=== PATIENT | male | born 1955 | race Caucasian/White ===

== ENCOUNTER 2019-08-27 14:42 | Emergency (ER) | payer OTHER, SELFPAY ==
[2019-08-27 14:48] VITALS: BP 133/93; PULSE 74; RESP 15; TEMP 36.9; O2SAT 96; BMI 32.1
--- NOTE | 2019-08-27 14:52 | ED_ITS ---
Entered by Debbie Aguirre, acting as scribe for HPI - Chest Pain General: Chief Complaint: Chest Pain Stated Complaint: cp Time Seen by Provider: 08/27/19 14:50 Review of Systems General: Reports: 10 or more systems reviewed and unremarkable except in HPI and below PFSH ED PFSH: Statuses (acute, chronic, etc) shown below reflect problem list status as previously entered and may not be historically accurate Social History Smoking and tobacco status: current every day smoker Physical Exam Narrative: EXAM NARRATIVE: No apparent distress. States she feels like she is about to have a seizure. Const: COMMON NORMALS: no apparent distress, oriented x3 and alert GENERAL APPEARANCE: cooperative HENMT: MOUTH: moist mucous membranes abnormal (dry mucus membranes) Neck/C-Spine: COMMON NORMALS: full ROM, no lymphadenopathy, no meningeal signs and no JVD Resp: COMMON NORMALS: normal respiratory effort, no retractions, no use of accessory muscles and clear to auscultation bilaterally AUSCULTATION: clear to auscultation bilaterally Cardio: COMMON NORMALS: no JVD, regular rate, regular rhythm, no gallops, no clicks and no murmurs RATE: regular rate RHYTHM: regular rhythm : COMMON NORMALS: Yes no CVA tenderness BLADDER/KIDNEY EXAM: Yes no CVA tenderness Back/Pelvis: COMMON NORMALS: no CVA tenderness and thoracic and lumbar spine normal to inspection Extremity: COMMON NORMALS: normal to inspection, full ROM and normal capillary refill Neuro: COMMON NORMALS: oriented x3 SENSORIUM/ORIENTATION: Yes alert MENINGEAL SIGNS: Yes no meningeal signs Course Vital Signs: Vital signs: Vital Signs Temperature 98.4 F 08/27/19 14:48 Pulse Rate 70 08/27/19 14:57 Respiratory Rate 17 08/27/19 14:57 Blood Pressure 133/93 08/27/19 14:48 Pulse Oximetry 98 08/27/19 14:57 MDM - Chest Pain Lab Data: Labs: Lab Results 08/27/19 Range/Units 15:20 WBC 8.5 (4.0-10.0) 10^3/ uL RBC 4.14 (4.1-5.3) 10^6/u L Hgb 12.8 (11.7-16.6) g/dL Hct 38.7 L (42.0-52.0) % MCV 93.5 (80-94) fL MCH 30.9 (28.0-34.0) pg MCHC 33.1 (30.0-36.0) g/dL RDW 11.9 L (12.1-15.1) % Plt Count 203 (130-400) 10^3/c mm MPV 9.5 (7.4-10.4) fL Neut % (Auto) 71.3 % Lymph % (Auto) 14.8 % [place] % (Auto) 11.3 % Eos % (Auto) 1.2 % Baso % (Auto) 0.8 % Neut # (Auto) 6.1 (1.8-7.7) 10^3/u L Lymph # (Auto) 1.3 (0.8-4.8) 10^3/u L [place] # (Auto) 1.0 H (0.2-0.9) 10^3/u L Eos # (Auto) 0.1 (0.0-0.8) 10^3/u L Baso # (Auto) 0.1 (0.0-0.1) 10^3/u L Nucleated RBC % (a uto) 0 % Nucleated RBCs # 0.0 /100WBC Discharge Plan Discharge Condition: Stable Referrals: Sigifredo Chase [Family Provider] - Coding Level of Care Code ED Manager Statistical for Chg Fwd Exam Problem Focused The documentation recorded by the Timothy noel Bridget Annette, accurately reflects the service I personally performed and the decisions made by , Loi Torres, DO Aug 27, 2019 14:42
[2019-08-27 14:57] VITALS: PULSE 70; RESP 17; O2SAT 98
--- NOTE | 2019-08-27 14:57 | XR_ITS ---
WS: [id number] CHEST XRAY TECHNIQUE: Portable chest. CLINICAL INFORMATION: dizziness / chest pain COMPARISON: December 06, 2018 FINDINGS: Heart: Normal cardiac silhouette. Lungs: Lungs are clear. No consolidation or pleural effusion. Bones: Normal visualized bony structures. XR/XR chest 1V portable [id number] IMPRESSION: No acute chest findings
[2019-08-27] MEDS: sodium chloride 0.9% 1,000 ML 999 ML IV (15:07)
[2019-08-27 15:28] LABS: Basophils # 0.1 10^3/uL (0.0-0.1); Basophils % 0.8 %; Eosinophils # 0.1 10^3/uL (0.0-0.8); Eosinophils % 1.2 %; Hematocrit 38.7 % (42.0-52.0); Hemoglobin 12.8 g/dL (11.7-16.6); Lymphocytes # 1.3 10^3/uL (0.8-4.8); Lymphocytes % 14.8 %; Mean Corpuscular HGB Conc 33.1 g/dL (30.0-36.0); Mean Corpuscular Hemoglobin 30.9 pg (28.0-34.0); Mean Corpuscular Volume 93.5 fL (80-94); Mean Platelet Volume 9.5 fL (7.4-10.4); Monocytes % 11.3 %; Neutrophils # 6.1 10^3/uL (1.8-7.7); Neutrophils % 71.3 %; Nucleated Red Blood Cells % 0 %; Platelet Count 203 10^3/cmm (130-400); Red Blood Count 4.14 10^6/uL (4.1-5.3); Red Cell Distribution Width 11.9 % (12.1-15.1); White Blood Count 8.5 10^3/uL (4.0-10.0)
[2019-08-27 15:44] LABS: D Dimer <= 0.27 ug/mIFEU (0-0.59)
[2019-08-27 15:47] LABS: Lactate (Lactic Acid level) 1.4 mmol/L (0.5-2.2)
--- NOTE | 2019-08-27 15:53 | ECG_ITS ---
Measurements Intervals [place] Rate: 75 P: 45 HI: 146 QRS: 1 QRSD: 112 T: 25 QT: 375 QTc: 420 SINUS RHYTHM MODERATE INTRAVENTRICULAR CONDUCTION DELAY [110+ ms QRS DURATION] VOLTAGE CRITERIA FOR LVH Compared to ECG 03/17/2017 06:14:18 Intraventricular conduction delay now present Left ventricular hypertrophy now present Sinus arrhythmia no longer present Electronically Signed On 08-27-2019 17:48:44 NEGATIVE ASSEMBLER [address] N[address]alia [address] M.D. [id number] f
[2019-08-27 15:56] LABS: Alanine Aminotransferase 19 U/L (0-41); Albumin Level 4.4 g/dL (3.5-5.2); Alkaline Phosphatase 140 IU/L (40-130); Anion Gap 15.1 (5-19); Aspartate Amino Transferase 19 U/L (0-40); Blood Urea Nitrogen 19 mg/dL (8-23); Calcium 9.5 mg/Dl (8.8-10.2); Carbon Dioxide 25 mmol/L (22-29); Chloride 102 mmol/L (98-107); Globulin 2.7 g/dL (1.3-4.6); Glomerular Filtration Rate 75.7 mL/min (90-130); Glucose 103 mg/dL (74-106); Lipase 14 U/L (13-60); NT Pro B Type Natriuretic Pept 53 pg/mL (0-125); Potassium 4.1 mmol/L (3.5-5.1); Sodium 138 mmol/L (136-145); Total Bilirubin 0.3 mg/dL (0.15-1.2); Total Protein 7.1 g/dL (6.6-8.7)
[2019-08-27 16:29] LABS: Troponin(5th) Baseline 7 ng/mL (0-15)
[2019-08-27 17:08] VITALS: BP 133/93; PULSE 66; RESP 17; O2SAT 94
[2019-08-27] MEDS: sodium chloride 0.9% 500 ML IV (17:16)
--- NOTE | 2019-08-27 17:53 | ECG_ITS ---
Measurements Intervals [place] Rate: 62 P: 62 SD: 146 QRS: 9 QRSD: 92 T: 3 QT: 387 QTc: 396 SINUS RHYTHM MINIMAL VOLTAGE CRITERIA FOR LVH, CONSIDER NORMAL VARIANT Compared to ECG 08/27/2019 14:50:20 Intraventricular conduction delay no longer present Electronically Signed On 08-28-2019 9:57:07 LICENSING SPECIALIST [address] N[address]alia [address] M.D. [id number]
[2019-08-27 19:05] VITALS: BP 134/85; PULSE 77; RESP 17; O2SAT 98
[2019-08-27 19:06] LABS: Troponin 5 2HR 7.11 ng/mL (0-15); Troponin 5 2HR Delta 0.11 ABS# (0-10)
[2019-08-27 19:30] VITALS: BP 145/87; PULSE 71; RESP 18; O2SAT 97
--- NOTE | 2019-08-27 19:42 | ED_ITS ---
HPI - Chest Pain General: Chief Complaint: Chest Pain Stated Complaint: cp Time Seen by Provider: 08/27/19 14:50 Source: patient History of Present Illness: HPI narrative: 63-year-old male who has had episodic chest pain for the last day. Patient states the pain is sharp in nature. He is currently pain-free. He denies any worsening improving factors. He states he does have arm pain in both arms but is concerned it could be art hritis as it is worse with movement. Denies shortness of breath. MD complaint: chest pain Onset (ago): day(s) Timing of current episode: episodic Associated symptoms: Deny abdominal pain, dyspnea, fever(s), nausea or vomiting Review of Systems Const: Denies: fever or chills Eyes: Denies: change in vision ENMT: Denies: throat pain or mouth pain Card: Reports: chest pain Resp: Denies: shortness of breath GI: Denies: abdominal pain, nausea, vomiting or diarrhea Musc: Denies: back pain or joint pain Skin/Breast: Denies: rash Neuro: Denies: headache or behavioral changes Psych: Denies: depression Endo: Denies: excessive urination Miguel/Lymph: Denies: easy bruising All/Imm: Denies: hives PFSH ED PFSH: Statuses (acute, chronic, etc) shown below reflect problem list status as previously entered and may not be historically accurate Social History Smoking and tobacco status: current every day smoker Physical Exam Const: COMMON NORMALS: no apparent distress and healthy appearing HENMT: COMMON NORMALS: normocephalic and external nose normal HEAD & SCALP: normocephalic NOSE: external nose normal and no nasal discharge (nasal dischage) Eye: COMMON NORMALS: PERRL PUPIL: Yes PERRL Neck/C-Spine: COMMON NORMALS: full ROM and no lymphadenopathy Chest: COMMONS NORMALS: inspection of chest normal Resp: COMMON NORMALS: normal respiratory effort and clear to auscultation bilaterally AUSCULTATION: clear to auscultation bilaterally Cardio: COMMON NORMALS: regular rate and regular rhythm RATE: regular rate RHYTHM: regular rhythm GI: COMMON NORMALS: soft to palpation PALPATION: Yes soft Extremity: COMMON NORMALS: normal to inspection, full ROM and normal capillary refill Psych: COMMON NORMALS: mental status grossly normal and cooperative Skin: COMMON NORMALS: no rashes or lesions noted GENERAL SKIN EXAM: no rashes or lesions noted Course Vital Signs: Vital signs: Vital Signs Temperature 98.4 F 08/27/19 14:48 Pulse Rate 71 08/27/19 19:30 Respiratory Rate 18 08/27/19 19:30 Blood Pressure 145/87 08/27/19 19:30 Pulse Oximetry 97 08/27/19 19:30 MDM - Chest Pain MDM Narrative: Medical decision making narrative: Patient presents here with chest pain that is atypical in nature is been going on for weeks. Initial and repeat troponin here are normal. I took patient over from Dr. Villarreal and patient is pain-free here. Patient is stable for discharge and is to follow-up with primary care doctor in 3 to 5 days and return if worsening. Lab Data: Labs: Lab Results 08/27/19 08/27/19 08/27/19 Range/Units 15:20 15:20 15:20 WBC 8.5 (4.0-10.0) 10^3/ uL RBC 4.14 (4.1-5.3) 10^6/u L Hgb 12.8 (11.7-16.6) g/dL Hct 38.7 L (42.0-52.0) % MCV 93.5 (80-94) fL MCH 30.9 (28.0-34.0) pg MCHC 33.1 (30.0-36.0) g/dL RDW 11.9 L (12.1-15.1) % Plt Count 203 (130-400) 10^3/c mm MPV 9.5 (7.4-10.4) fL Neut % (Auto) 71.3 % Lymph % (Auto) 14.8 % [place] % (Auto) 11.3 % Eos % (Auto) 1.2 % Baso % (Auto) 0.8 % Neut # (Auto) 6.1 (1.8-7.7) 10^3/u L Lymph # (Auto) 1.3 (0.8-4.8) 10^3/u L [place] # (Auto) 1.0 H (0.2-0.9) 10^3/u L Eos # (Auto) 0.1 (0.0-0.8) 10^3/u L Baso # (Auto) 0.1 (0.0-0.1) 10^3/u L Nucleated RBC % (a uto) 0 % Nucleated RBCs # 0.0 /100WBC D-Dimer <= 0.27 (0-0.59) ug/mIFE U Sodium 138 (136-145) mmol/L Potassium 4.1 (3.5-5.1) mmol/L Chloride 102 (98-107) mmol/L Carbon Dioxide 25 (22-29) mmol/L Anion Gap 15.1 (5-19) BUN 19 (8-23) mg/dL Creatinine 1.0 (0.7-1.2) mg/dL GFR Calculation 75.7 L (90-130) mL/min Glucose 103 (74-106) mg/dL Lactate (0.5-2.2) mmol/L Calcium 9.5 (8.8-10.2) mg/Dl Total Bilirubin 0.3 (0.15-1.2) mg/dL AST 19 (0-40) U/L ALT 19 (0-41) U/L Alkaline Phosphata se 140 H (40-130) IU/L Troponin T Baselin e (0-15) ng/mL Troponin T 120 Min [place] (0-15) ng/mL NT-Pro-B Natriuret Pep 53 (0-125) pg/mL Total Protein 7.1 (6.6-8.7) g/dL Albumin 4.4 (3.5-5.2) g/dL Globulin 2.7 (1.3-4.6) g/dL Lipase 14 (13-60) U/L 08/27/19 08/27/19 08/27/19 Range/Units 15:20 15:20 17:56 WBC (4.0-10.0) 10^3/ uL RBC (4.1-5.3) 10^6/u L Hgb (11.7-16.6) g/dL Hct (42.0-52.0) % MCV (80-94) fL MCH (28.0-34.0) pg MCHC (30.0-36.0) g/dL RDW (12.1-15.1) % Plt Count (130-400) 10^3/c mm MPV (7.4-10.4) fL Neut % (Auto) % Lymph % (Auto) % [place] % (Auto) % Eos % (Auto) % Baso % (Auto) % Neut # (Auto) (1.8-7.7) 10^3/u L Lymph # (Auto) (0.8-4.8) 10^3/u L [place] # (Auto) (0.2-0.9) 10^3/u L Eos # (Auto) (0.0-0.8) 10^3/u L Baso # (Auto) (0.0-0.1) 10^3/u L Nucleated RBC % (a uto) % Nucleated RBCs # /100WBC D-Dimer (0-0.59) ug/mIFE U Sodium (136-145) mmol/L Potassium (3.5-5.1) mmol/L Chloride (98-107) mmol/L Carbon Dioxide (22-29) mmol/L Anion Gap (5-19) BUN (8-23) mg/dL Creatinine (0.7-1.2) mg/dL GFR Calculation (90-130) mL/min Glucose (74-106) mg/dL Lactate 1.4 (0.5-2.2) mmol/L Calcium (8.8-10.2) mg/Dl Total Bilirubin (0.15-1.2) mg/dL AST (0-40) U/L ALT (0-41) U/L Alkaline Phosphata se (40-130) IU/L Troponin T Baselin e 7 (0-15) ng/mL Troponin T 120 Min [place] 7.11 (0-15) ng/mL NT-Pro-B Natriuret Pep (0-125) pg/mL Total Protein (6.6-8.7) g/dL Albumin (3.5-5.2) g/dL Globulin (1.3-4.6) g/dL Lipase (13-60) U/L Imaging Data^: CXR: Attestation: I personally reviewed and interpreted this imaging study as follows: My impression: no acute abnormality Discharge Plan Discharge Patient Disposition: Home, Self-Care Clinical Impression: Chest pain Qualifiers: Chest pain type: unspecified Qualified Code(s): R07.9 - Chest pain, unspecified Condition: Stable Discharge Orders: Discharge Order (Routine); Ordered 08/27/19 Ordered By: Baljit Borrero Referrals: Sigifredo Chase [Family Provider] - 4-7 days Discharge Diet: Advance as tolerated Discharge Activity: Resume usual activity Patient Instructions: Chest Pain (ED) Discharge Date/Time: 08/27/19 19:34 Coding Level of Care Code ED Boat Crew Deck Hand for Brodie Chang
== END 2019-08-27 19:34 | disposition home or self-care (01) ==
PROVIDERS: Family Medicine; Emergency Provider Emergency Medicine; Family Provider Internal Medicine
DX: R07.9 Chest pain, unspecified (principal); F17.210 Nicotine dependence, cigarettes, uncomplicated
CPT/HCPCS: 36415; 71045; 80053; 83605; 83690; 83880; 84484; 85025; 85378; 93005; 96360; 96361; 99282; J7030; J7040

== ENCOUNTER 2020-04-06 07:03 | Outpatient (CLI) | payer OTHER, SELFPAY ==
--- NOTE | 2020-04-06 07:16 | NMCV_ITS ---
NM bay perf SPECT r/s* [id number] Pierre Mccoy Age: 64 Gender: M : 1955 Exam Date: 04/06/2020 08:37 Ordering Phys: Kerrie Robles Technologist: GREGORY Pérez Exam Location: [facility] Indications: HISTORY OF CAD STRESS TEST Please see separate stress test report in [facility] for full findings IMAGE PROTOCOL Rest/Stress 1 Lexiscan Day Radiopharmaceutical Dose (mCi) Administration Site Administered by Rest: Tc-99m 11.0 IV GREGORY Pérez Sestamibi Stress:Tc-99m 32.9 IV GREGORY Cook Sestamibi Rest: 06-Apr-2020 60 Discovery 630 Stress: 06-Apr-2020 30 Discovery 630 0.4mg Lexiscan. Images obtained in supine and prone position. SPECT RESULTS Technical Quality: Excellent Raw Data Analysis: Normal Image Corrections: No attenuation or motion correction applied Summed Stress Score: 0 Summed Rest Score: 0 Summed Difference Score: 0 PERFUSION FINDINGS Small size perfusion abnormality of mild severity of mid to apical inferior wall with improved tracer uptake on prone stress images. This is suggestive of attenuation artifact. FUNCTIONAL RESULTS (calculated via Gated SPECT) Stress Image LV EF (%): 58 Stress EDV (mL):123 TID: 1.21 Stress ESV (mL):52 FUNCTIONAL FINDINGS: The left ventricle is normal in size. Transient Ischemia Dilatation of 1.2. There is normal left ventricular systolic function. The left ventricular ejection fraction is normal with a value of 58%. There is normal left ventricular wall thickening. IMPRESSIONS 1. Myocardial perfusion imaging is normal. Attenuation artifact noted on mid to apical inferior wall. 2. Overall left ventricular systolic function is normal without regional wall motion abnormalities. 3. The left ventricular ejection fraction is normal with a value of 58%. 4. Transient ischemic dilation index is mildly elevated at 1.2. This may represent subendocardial ischemia/hypertensive response. Clinical correlation is advised. 5. No prior similar studies to compare. Nathalia Way MD (Electronically Signed) Final Date: 07 April 2020 11:27 S
--- NOTE | 2020-04-06 07:16 | ECG_ITS ---
[facility] Test Date: 2020-04-06 Pat Name: Pierre Mccoy Department: Room: Gender: Male Staffing Director: : 1955 Requested By: Kerrie Robles Order Number: [id number] Torres MD: Jayda English M.D. Interpretive Statements NAME OF STUDY: LEXISCAN SESTAMIBI STRESS TEST INDICATION: H/O CAD NOTE: Please note that this is the electrocardiogram portion of the Lexiscan/Sestamibi stress test. The perfusion scan will be documented separately. DATA: Baseline heart rate was 53 beats per minute. Baseline blood pressure was 120/77 millimeters of mercury. Target heart rate was 157. Maximum heart rate achieved was 85. which was 54 % of the predicted target heart rate. Maximum blood pressure was 148/86 millimeters of mercury. The reason for ending the test was completion of the protocol. The patient did not experience any symptoms. ELECTROCARDIOGRAM: BASELINE: Sinus rhythm. Normal axis. Otherwise, no ST-T changes suggestive of ischemia noted. No arrhythmia noted. EXERCISE: After Lexiscan injection, no ST-T changes suggestive of ischemic noted. No arrhythmia noted. CONCLUSION: Please note due to baseline abnormality of the EKG specificity and sensitivity of the EKG portion of LexiScan MIBI stress test will be low 1. EKG not suggestive of ischemia 2. Lexiscan injection unremarkable. 3. Perfusion scan will be documented separately. Electronically Signed On 04-15-2020 19:09:59 CDT by Jayda English M.D. [id number]
[2020-04-06 07:36] VITALS: BMI 32.2
[2020-04-06] MEDS: regadenoson 0.4 Mg/5 ml Syringe IVP (09:34)
[2020-04-06 09:52] VITALS: BP 126/78; PULSE 73
== END 2020-04-06 07:04 | disposition home or self-care (01) ==
LOC: CDL 07:03
PROVIDERS: Visit Provider Nurse Practitioner Family
DX: I25.10 Atherosclerotic heart disease of native coronary artery without angina pectoris (principal); R94.39 Abnormal result of other cardiovascular function study
CPT/HCPCS: 78452; 93017; A9500; J2785

== ENCOUNTER 2020-10-08 08:33 | Outpatient (CLI) | payer OTHER, SELFPAY ==
--- NOTE | 2020-10-08 08:37 | MR_ITS ---
WS: [id number] MRI RIGHT SHOULDER NONCONTRAST AND CONTRAST TECHNIQUE: Sagittal T2, coronal T1, T2 and proton density imaging. Axial gradient PDE imaging. Post g adolinium imaging obtained. CLINICAL INFORMATION: mass and right shoulder pain COMPARISON: None. FINDINGS: Well-circumscribed lipoma deep to the palpable marker. Lipoma measures approximately 2.7 x 4.1 x 4.6 cm. No abnormal gadolinium enhancement. No surrounding edema. This appears well encapsulated. Moderate degenerative arthritis AC joint with mild edema. Subacromial space is preserved. Moderate de generative arthritis glenohumeral joint. Tiny amount of subacromial/subdeltoid fluid. Mild chronic th inning of the distal supraspinatus with calcific tendinitis at the insertion. Tiny intrasubstance tea r in the distal supraspinatus. Normal infraspinatus. Normal teres minor and subscapularis. Normal biceps tendon in the bicipital groove. Degenerative fraying of the glenoid labrum. Normal lisa ps labral anchor. MR/MR shoulder RT wo/w con [id number] IMPRESSION: 1. Well-circumscribed lipoma deep to the palpable marker measures 2.7 x 4.1 x 4.6 cm. No abnormal enhancement. 2. Moderate degenerative arthritis at the AC joint with a small amount of suba cromial/subdeltoid fluid. 3. Tiny intrasubstance tear with calcific tendinitis involving the distal supr aspinatus. Rotator cuff is otherwise normal in appearance. 4. Normal biceps tendon in the bicipital groove.
[2020-10-08] MEDS: gadobenate dimeglumine 20 mL vial IV (10:47)
== END 2020-10-08 08:34 | disposition home or self-care (01) ==
LOC: RADSHAW 08:35
PROVIDERS: PCP Family Medicine; Visit Provider Dermatology
DX: R22.31 Localized swelling, mass and lump, right upper limb (principal); M19.011 Primary osteoarthritis, right shoulder; M75.101 Unspecified rotator cuff tear or rupture of right shoulder, not specified as traumatic; M75.31 Calcific tendinitis of right shoulder
CPT/HCPCS: 73223; A9577

== ENCOUNTER → 2020-10-21 14:55 | Outpatient (BNVA) | payer OTHER, SELFPAY | PROVIDERS: PCP Family Medicine; Visit Provider Nurse Practitioner | DX: R29.90 Unspecified symptoms and signs involving the nervous system (principal); F17.210 Nicotine dependence, cigarettes, uncomplicated | CPT/HCPCS: 99204 ==

== ENCOUNTER → 2020-11-26 10:22 | Outpatient (BNVA) | payer OTHER, SELFPAY | PROVIDERS: PCP Family Medicine; Visit Provider Surgery | DX: D17.9 Benign lipomatous neoplasm, unspecified (principal); Z20.822 Contact with and (suspected) exposure to COVID-19 | CPT/HCPCS: 87635 ==

== ENCOUNTER 2020-11-30 07:41 | Day surgery (SDC) | payer OTHER, SELFPAY ==
[2020-11-27 15:55] VITALS: BMI 35.4
[2020-11-30] VITALS (11 sets, daily range): BP systolic 68–97; BP diastolic 50–64; PULSE 66–76; RESP 14–18; TEMP 36.2–36.3; O2SAT 91–97
--- NOTE | 2020-11-30 08:12 | ANES.PREANE2 ---
Pre-Anesthetic Assessment Pre-Anesthetic Assessment: Height/Weight: Height 1.73 m Weight 105.687 kg Preop Diagnosis: Right shoulder lipoma Proposed Procedure: Operation Date: 11/30/20 09:10 Proposed Procedures p 31003 excision of lipoma d17.9(Not Applicable) - Chester Whitman MD Was Beta Maria Luisa taken within 24 hours: Yes Was Clonidine taken within 24 hours: N/A Last intake: Intake Last Liquid Date 11/29/20 Last Liquid Time 19:30 Last Solid Date 11/29/20 Last Solid Time 19:30 Social: Social History: Tobacco and No alcohol Exam: Pre-Anes Outpt Exam: alert, oriented x 3 and regular rate & rhythm Airway: Submandibular: WNL Cervical ROM: WNL MP: 2 Additional comments: Missing several Pulmonary: Pulmonary: COPD CV/HEM: CV/HEM: CAD (stents) and HTN Metabolic: Metabolic: Morbid obesity Anesthetic Plan: ASA status: 3 Anesthesia: Choice Risk of > 500 ml blood loss (7ml/kg in children): No PFSH Anesthesia PFSH: Medical History ASHD (arteriosclerotic heart disease) History of AR (myocardial infarction) HTN (hypertension) Hyperlipidemia Mass of shoulder region Tremor Surgical History S/P coronary artery stent placement Social History Smoking and tobacco status: current every day smoker Data Anesthesia Cardiac Studies: No Data to Display
[2020-11-30] MEDS: sodium chloride 0.9% 1,000 ML 30 ML IV ×2 (08:20→11:10)
[2020-11-30] MEDS: acetaminophen 1,000 MG/100 ML PIGGYBACK 400 MG IV (08:20)
--- NOTE | 2020-11-30 09:56 | W.PM.OPSUD ---
Surgery/Procedure H&P Update DATE OF PROCEDURE: November 30, 2020 DATE H&P PERFORMED: 11/05/20 H&P UPDATE INFORMATION: I have reviewed H&P completed within last 30 days, I have examined patient prior to procedure and No changes to prior documentation PREOP DIAGNOSIS: Right shoulder lipoma PRIMARY INDICATION FOR PROCEDURE: Patient was seen and evaluated by orthopedic service and there will be no surgery at this point from orthopedic standpoint of view. We will plan to undergo excision of right shoulder lipoma and I did discuss with the patient after the length in the presence of his spouse that part of the discomfort that he has might be addressed by surgical removal of the lipoma but another etiology could be taking place in the presence of 1. Well-circumscribed lipoma deep to the palpable marker measures 2.7 x 4.1 x 4.6 cm. No abnormal enhancement. 2. Moderate degenerative arthritis at the AC joint with a small amount of subacromial/subdeltoid fluid. 3. Tiny intrasubstance tear with calcific tendinitis involving the distal supraspinatus. Rotator cuff is otherwise normal in appearance. 4. Normal biceps tendon in the bicipital groove. Patient understands and expectations are set and all questions have been answered PLANNED PROCEDURE: Operation Date: 11/30/20 09:10 Proposed Procedures p 40252 excision of lipoma d17.9(Not Applicable) - Chester Whitman MD
[2020-11-30] MEDS: lidocaine 2% INJ 20 mL INJECTION (10:35)
--- NOTE | 2020-11-30 10:38 | PM.OP ---
Operative Report Date of procedure: November 30, 2020 Pre-op Diagnosis: Right shoulder lipoma Post-op diagnosis: same Post-op Diagnosis: Subcutaneous right shoulder lipoma measures 5 x 4 cm x 2 Procedure Done: Excision of right shoulder lipoma Specimens removed/disposition: Right shoulder lipoma well encapsulated Surgeon: Chester Whitman Vending Machine Coin Collector: Surgical jelly Ramirez Anesthesia: General (LMA manager community Debbie) Estimated blood loss (mL): 5 Condition: stable Brief History: Right shoulder lipoma. Full H&P and informed consent per chart. Procedure: After identifying the patient holding area, the right shoulder was marked before the procedure by myself, patient was then taken to the operative suite, was placed in supine position, LMA was placed by the anesthesia, prophylactic IV antibiotics were given per protocol, right arm was tucked and a footboard was placed, prep and drape of the right shoulder region was done under the usual sterile technique. Time-out was done verifying the patient's name/date of /planned procedure and destination after the procedure, all were in agreement. After palpation of the right shoulder.I did a transverse incision on top of the madelyn corresponding to the skin crease increase with , dissection was carried after the skin incision all the way to the subcutaneous tissues, while benign encapsulated lipoma measures 4 x 5 x 2 cm was dissected from the underlying and surrounding subcutaneous tissues.The mass was passed to the circulating nurse for permanent pathology. Thorough irrigation of the cavity was done and hemostasis, followed by deep dermal closure by 2-0 Vicryl, then 4-0 Monocryl for skin closure Lidocaine 2% was injected at the site of the incision, followed by surgical glue and pressure dressing. Patient tolerated the procedure well, count of instruments, needles and sponges were completed at the end of the procedure. And then patient was taken to the recovery area in stable condition. I Was present for the whole entire procedure
--- NOTE | 2020-11-30 11:06 | SUR.PHASEI ---
PT REMAINS ASLEEP IN [place]SE [place] FOR SOFT BP , IV W/O RATE, BP IMPROVING AT 101/51 RT SHOULDER DRESSING D/I
--- NOTE | 2020-11-30 11:11 | SUR.PHASEI ---
PT AWAKES , ORAL AIRWAY OUT PT REMAINS VERY GROGGY, AND QUICKLY BACK TO SLEEP WITH SNORING RESP, SATS 97% ON 6LMASK
--- NOTE | 2020-11-30 11:22 | SUR.PHASEI ---
1120 PT HOB UP GRADUALLY, BP BACK DOWN, IV FLUID AT W/O RATE.
--- NOTE | 2020-11-30 11:29 | SUR.PHASEI ---
PT AWAKES EASILY, GOOD RESP NOTED SATS 90% PT PLACED ON 3NC SATS UP TO 94% VSS , PT QUICKLY BACK TO SLEEP,
--- NOTE | 2020-11-30 12:06 | SUR.PHASEI ---
1133 PT BP HOLDING WITH HOB 20 DEGREES , LEGS ELEVATED WILL CONTINUE TO MONITOR IN PHASE 2 REPORT AND HANDOFF AT BEDSIDE
--- NOTE | 2020-11-30 15:42 | ANE.PACU2 ---
Inpatient post-anesthesia follow up: Airway intact: Yes Vital signs: Temperature 97.2 F Pulse Rate 75 Respiratory Rate 18 Blood Pressure 97/64 Pulse Oximetry 92 Oxygen Delivery Me thod Room Air Oxygen Flow Rate 2 Fraction of Inspir ed Oxygen Hydration adequate: Yes Nausea and vomiting: No Pain level: 1 Mental status: Baseline
== END 2020-11-30 12:28 | disposition home or self-care (01) ==
PROVIDERS: PCP Family Medicine; Visit Provider Surgery
PROC: (CPT 11406; principal; 2020-11-30 09:00)
DX: D17.21 Benign lipomatous neoplasm of skin and subcutaneous tissue of right arm (principal); J44.9 Chronic obstructive pulmonary disease, unspecified; I25.10 Atherosclerotic heart disease of native coronary artery without angina pectoris; Z95.5 Presence of coronary angioplasty implant and graft; I10 Essential (primary) hypertension; E66.01 Morbid (severe) obesity due to excess calories; Z68.35 Body mass index [BMI] 35.0-35.9, adult; E78.5 Hyperlipidemia, unspecified; F17.210 Nicotine dependence, cigarettes, uncomplicated
CPT/HCPCS: 11406; 12032; 88304; 96365; J0690; J2250; J2405; J2704; J3010; J3490; J7030

== ENCOUNTER → 2021-01-07 08:24 | Outpatient (BNVA) | payer OTHER, SELFPAY | PROVIDERS: PCP Family Medicine; Visit Provider Internal Medicine Cardiovascular Disease | DX: I10 Essential (primary) hypertension (principal); I25.10 Atherosclerotic heart disease of native coronary artery without angina pectoris; E78.5 Hyperlipidemia, unspecified; Z20.822 Contact with and (suspected) exposure to COVID-19 | CPT/HCPCS: 80048; 85025; 85610; 87635 ==

== ENCOUNTER 2021-01-14 05:50 | Day surgery (SDC) | payer OTHER, SELFPAY ==
[2021-01-14] VITALS (56 sets, daily range): BP systolic 92–151; BP diastolic 58–123; PULSE 55–102; RESP 8–24; TEMP 36.3–36.8; O2SAT 91–100; BMI 33.7
--- NOTE | 2021-01-14 06:00 | XACV_ITS ---
Ht: 173 cm Wt: 101 kg BSA: 2.23 m2 Gender: Male : 1955 Any Known Allergies: No known allergies Exam Priority: Routine Procedure(s): Procedure Description: Diagnostic procedure Procedure Description: Left Heart Catheterization Diagnostic Cath Status: Elective Diagnostic Findings * Left Main has no disease. * Circumflex has no disease. * Right Coronary Artery has no disease. * Mid Left Anterior Descending: significant 75% stenosis, TIFFANI: 0 flow, FFR performed: ratio is 0.72. * 1st Diagonal: total occlusion, TIFFANI: 0 flow. * 1st Left Anterior Descending Septal Distribution Engineering Technologist Segment: severe 90% stenosis, TIFFANI: 3 flow. * Coronary angiography shows right dominance. Interventional Findings * Mid Left Anterior Descendin% stenosis treated with a AB MINI TREK 2.00X20 RX BALLOON, and MDT R KHOA 3.0X22 MARITA. 0% residual stenosis, TIFFANI: 3 flow. * 1st Diagonal: 100% stenosis treated with a AB MINI TREK 2.00X8 RX BALLOON. 0% residual stenosis, TIFFANI: 3 flow. Conclusions 1. There is significant coronary artery disease with one vessel disease. 2. Mid Left Anterior Descending was treated with a Balloon, and Drug Eluting Stent. 3. 1st Diagonal was treated with a Balloon. 4. FFR: After equalizing the distal and proximal pressure of FFR wire proximal to the lesion, mid LAD lesion was crossed with FFR wire. IV adenosine at rate of 140 mcg/min was started. Patient did not compliant of any symptoms, at then end of two minutes FFR was recorded as 0.72, which is not significant . Recommendations * 1-Return to inpatient for close monitoring and routine cath care 2-Risk factor modification for secondary prevention 3-Statin and aspirin 81 mg life--long, if tolerated 4-Patient was pre-loaded with 600 mg of Plavix, continue Plavix 75mg p.o. daily for at least one year. We will assess at the end of one year again to continue if further or not 5-Continue optimal medical management 6-Follow up with Dr. English in four weeks and your primary care in 10 days. Diagnostic RX Recommendation: PCI w/o planned CABG Procedural Details Procedure Consent Obtained. Admit Source: Out Patient. Pre-Procedure Time Out. Identified patient by full name and date of as verbalized by the patient/guarantor. Does the consent match the physician's order: Yes. Accurate & Complete Informed Consent: Yes. Inpatient/Outpatient History & Physical on Chart: Yes. If H&P is completed, is and addenduem needed: N/A; If yes, is the addendum complete: N/A. Visualize and Verify Site with Patient/Guarantor: N/A. Relevant Radiology Images available: N/A. Pre-op teaching completed and patient verbalized understanding. The risks, benefits, and alternatives of sedation and/or procedure were discussed by physician. The patient agrees to continue. Procedure started. Correct patient, site and procedure confirmed by cath team. PERRLA. 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 Lungs clear x 5 lobes. IV Site on Arrival: 20 gauge in the left anticubital. Pre Procedural Pulses: bilateral dorsalis pedis was 3+. Pre Procedural Pulses: bilateral posterior tibial was 3+. Pre Procedural Pulses: bilateral radial was 3+. Oxygen started at 21liters/min via nasal canula. bilateral groins was prepped with chloroprep then draped in the usual sterile fashion. right radial was prepped with chloroprep then draped in the usual sterile fashion. Physician notified. Baseline sample Acquired. HR: 59 BPM. Physician arrived. Physician scrubbed in. Immediate Pre-Procedure Time Out. Correct Patient: Yes; Correct Procedure: Yes; Correct Site: Yes; Correct Patient Position: Yes; Correct Supplies: Yes; Dried Flammable Prep: Yes; Blood Products Available: N/A;. Lidocaine 1% infiltrated to the right radial. Arterial access obtained. A 5 cuban TIG catheter in over wire. Multiple views taken of left coronary artery. Catheter redirected to the RCA. Catheter out. 6 cuban XB 3.5 guide catheter was inserted over the wire. FFR guidewire was advanced through the guide catheter to lesion in the mid LAD. Wire out. FFR guidewire was advanced through the guide catheter to lesion in the mid LAD. An FFR value of 0.72 was obtained for a lesion located at Mid LAD. Wire out. [place] guidewire was advanced through the guide catheter to lesion in the diaganol. [place] guidewire was advanced through the guide catheter to lesion in the mid LAD. Inflation number : 1 A AB MINI TREK 2.00X20 RX BALLOON was prepped and advanced across the Mid LAD , then inflated to 18 APRIL for 0:16 seconds. Balloon out. both wires out. [place] guidewire was advanced through the guide catheter to lesion in the mid LAD. [place] guidewire was advanced through the guide catheter to lesion in the diaganol. Inflation Number : 2 A MDT R KHOA 3.0X22 MARITA -Lot Number# [id number] exp date: 08-03-2022 was prepped and advanced across the Mid LAD. The stent was deployed at 16 APRIL for 0:27 seconds. Stent balloon out over wire. Results checked. cougar Wire 1 out. Runthrough guidewire was advanced through the guide catheter to lesion in the mid LAD. cougar Wire 2 out. Inflation number : 1 A AB MINI TREK 2.00X8 RX BALLOON was prepped and advanced across the 1st Diag , then inflated to 12 APRIL for 0:15 seconds. Inflation number: 2 The AB MINI TREK 2.00X8 RX BALLOON was reinflated across the 1st Diag, to 12 APRIL for 0:12 seconds. Inflation number: 3 The AB MINI TREK 2.00X8 RX BALLOON was reinflated across the 1st Diag, to 12 APRIL for 0:12 seconds. Inflation number: 4 The AB MINI TREK 2.00X8 RX BALLOON was reinflated across the 1st Diag, to 12 APRIL for 0:10 seconds. Balloon and wire out. Results checked. Guide catheter out. ACT drawn. Results 167 seconds. Therapeutic limits - pre-heparin administration 90-150 seconds and monitoring heparin during a vascular procedure >250 seconds. TR band placed. Hemostasis obtained. Post Procedure: Pulses reassessed and unchanged. PERRLA. 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 No VTE prophylaxis required. Medication's Wasted: Lidocaine 1% = 15 mL. Medication's Wasted: Other = adenosine 63.7 mg. Medication's Wasted: Nitro = 49.8 mg. Total IV fluids: 82 mL. Contrast type used: Omnipaque 300 mgI/mL, 500 mL bottle. Contrast Material : Omnipaque 301 ml. A TR Band was successful obtaining hemostatsis at the Right Radial artery insertion site. [facility] Clinical Fraility Score: 3: Managing Well. Circulation Crew Leader Indications: Worsening Angina. Chest Pain Symptom Assessment: Atypical Angina. Cardiovascular Instability: yes; unstable angina. PCI Indication: abnormal FFR of mid LAD. Post-op diagnosis: PCI to mid LAD. Complications: none. Medication's Wasted: Heparin = 3000 units. Procedure completed. Patient transferred by wheelchair to 1st floor. Vital chart was stopped. Access Site Site: Right Radial artery Sheath Size: 6 Fr Hemostasis Method: TR Band Hemostasis Success: Successful Procedure Medications Start: 8:49 AM Stop: 8:49 AM Medication: Versed Amount: 1 mg Route: I.V. Start: 8:49 AM Stop: 8:49 AM Medication: Fentanyl Amount: 50 mcg Route: I.V. Start: 8:55 AM Stop: 8:55 AM Medication: Nitrogylcerin Amount: 200 mcg Route: I.A. Start: 8:56 AM Stop: 8:56 AM Medication: Heparin Amount: 5000 units Route: I.V. Start: 9:24 AM Stop: 9:24 AM Medication: Heparin Amount: 5000 units Route: I.V. Start: 9:27 AM Stop: 9:27 AM Medication: Aggrastat 12.5 mg/250 mL Amount: 50 ml Route: I.V. bolus Start: 9:28 AM Stop: 9:28 AM Medication: Aggrastat 12.5 mg/250 mL Amount: 18 ml/hr Route: I.V. drip Start: 9:57 AM Stop: 9:57 AM Medication: Plavix Amount: 600 mg Route: P.O. Start: 9:58 AM Stop: 9:58 AM Medication: Heparin Amount: 3000 units Route: I.V. I, the attending physician, have reviewed and verified all procedure medications. Yes, all medications given per verbal order History/Risk Factors Hypertension: Yes Dyslipidemia: Yes Myocardial Infarction (PA): Yes Tobacco Use: Current/Recent(w/in 1 year) Prior Interventions PCI: Yes Report Signatures Finalized by Jayda English MD on 01/17/2021 09:09 AM
[2021-01-14] MEDS: diphenhydrAMINE 50 mg Capsule PO (06:36)
--- NOTE | 2021-01-14 08:43 | P.HP_ITS ---
Providers/Chief Complaint Primary Care Provider: Sally Conn MD Chief Complaint: Angina I20.9 History of Present Illness Pierre Mccoy is a 65 year old male coronary artery disease significant for drug-eluting stent to RCA in 2017 was complaining of worsening of fatigue shortness of breath and chest pain on mild exertion since he saw me last time. Pain has increased in frequency and duration. It is to the extent that he cannot walk far without hurting or being extremely short of breath. In the near past to be performed stress test which did not show significant ischemia medical management continued and optimized except beta-ida due to extreme fatigue. Since patient continues to have worsening of shortness of breath which has increased duration and frequency in order to rule out unstable angina we will proceed with coronary angiogram as stress test was already performed few months ago. Today patient is here for left heart cath. He has been explained all risk benefit and alternative for the procedure. He was explained the risk for stroke urgent emergent bypass, major minor bleed requiring transfusion. He would like to proceed with it. He understand the risk for contrast-induced nephropathy. Medications/Allergies Home Medications Medication Instructions Recorded Confirmed Last Taken Type aspirin 81 mg tablet,delayed 81 mg PO DAILY 11/19/19 01/14/21 01/13/21 09:00 History release lisinopril 2.5 mg tablet 2.5 mg PO DAILY 11/19/19 01/14/21 01/13/21 09:00 History rosuvastatin 20 mg tablet 20 mg PO DAILY 11/19/19 01/14/21 01/13/21 21:00 History omega-3 fatty acids 1,000 mg 1,000 mg PO BID cap 03/09/20 01/14/21 01/13/21 21:00 History capsule sertraline 100 mg tablet 100 mg PO DAILY 03/09/20 01/14/21 01/13/21 09:00 History nitroglycerin 0.4 mg sublingual 0.4 mg SUBLINGUAL Q5M PRN 30 Days 03/24/20 01/14/21 Unknown Rx tablet #25 tab atenolol 25 mg tablet 25 mg PO DAILY #90 tab 04/21/20 01/14/21 01/13/21 09:00 Rx isosorbide mononitrate 30 mg 30 mg PO BID #180 tab 09/08/20 01/14/21 01/13/21 21:00 Rx tablet,extended release 24 hr carbidopa 25 mg-levodopa 250 mg 1 tab PO BID tab 10/21/20 01/14/21 01/13/21 21:00 History tablet prazosin 2 mg capsule 2 mg PO DAILY cap 10/21/20 01/14/21 01/13/21 09:00 History hydrocodone-acetaminophen 1 tab PO Q6H PRN #28 tab 11/30/20 01/14/21 Unknown Rx clopidogrel [Plavix] 75 mg PO DAILY #90 tab 01/15/21 Unknown Rx Allergies Allergy/AdvReac Type Severity Reaction Status Date / Time No Known Allergies Allergy Verified 12/11/20 15:17 PFSH Acute PFSH: Medical History ASHD (arteriosclerotic heart disease) History of MN (myocardial infarction) HTN (hypertension) Hyperlipidemia Mass of shoulder region Tremor Surgical History S/P coronary artery stent placement Social History Smoking and tobacco status: current every day smoker Vitals/I&O/Wt Last Vital Signs Temp 98.2 F 01/14/21 06:16 Pulse 68 01/14/21 06:16 Resp 18 01/14/21 06:16 BP 130/58 01/14/21 06:16 Pulse Ox 97 01/14/21 06:16 Weight last 48 hrs Weight 222 lb Physical Exam Narrative: EXAM NARRATIVE: GENERAL: Patient is alert, awake and oriented x3. NECK: No jugular vein distension. HEENT: No cyanosis. No icterus. No pallor. HEART: Regular S1 and S2. No murmur, rub or gallop. LUNGS: Clear to auscultate bilaterally. ABDOMEN: Soft, nontender and nondistended. Positive bowel sounds. No guarding, rebound or tenderness. CENTRAL NERVOUS SYSTEM: Grossly nonfocal. EXTREMITIES: Lower extremities without edema bilaterally. Data : 01/15/21 03:57 01/15/21 03:57 A&P Assessment and plan (1) ASHD (arteriosclerotic heart disease): Worsening of shortness of breath with increased frequency and duration of chest pain severe fatigue in a patient with history of prior stents and recently negative stress test despite of optimization of medicine may represent unstable angina we will therefore proceed with left heart cath. Further plan will be devised as per progress of the patient. Status: Acute (2) HTN (hypertension): Reasonably well-controlled continue medicine Status: Acute Qualifiers: Hypertension type: essential hypertension Qualified Code(s): I10 - Essential (primary) hypertension (3) Hyperlipidemia: Continue statin Status: Acute Qualifiers: Hyperlipidemia type: unspecified Qualified Code(s): E78.5 - Hyperlipidemia, unspecified Attestations Medical Necessity Statement*: I am not expecting his stay to cross more than 1 midnight. He will be outpatient in the bed Coding Level of Care Code Established Pt Acute Source Water Protection Specialist for Chg Fwd Patient Type Established History Detailed Exam Detailed Medical Decision Making Moderate Complexity Diagnoses ASHD (arteriosclerotic heart disease) I25.10 HTN (hypertension) I10 Hypertension type: essential hypertension Hyperlipidemia E78.5 Hyperlipidemia type: unspecified
[2021-01-14] MEDS: morphine 4 mg/mL SDV 1 mL 2 MG IVP (10:57)
--- NOTE | 2021-01-14 11:06 | XACV_ITS ---
Exam Room: [facility] Ht: 173 cm Wt: 101 kg BSA: 2.23 m2 Gender: Male : 1955 Any Known Allergies: No known allergies Exam Priority: Routine Procedure(s): Procedure Description: Diagnostic procedure Procedure Description: Left Heart Catheterization Diagnostic Cath Status: Emergency Diagnostic Findings * Left Main has no disease. * Circumflex has no disease. * Right Coronary Artery has no disease. * Proximal Left Anterior Descending: severe 90% stenosis, TIFFANI: 2 flow. * Distal Left Anterior Descending: severe 90% stenosis, TIFFANI: 2 flow. * Coronary angiography shows right dominance. Interventional Findings * Proximal Left Anterior Descendin% stenosis treated with a MDT R KHOA 3.0X22 MARITA, and MDT NC EUPHORA RX 3.34L42WV BALLOON. 0% residual stenosis, TIFFANI: 3 flow. * Distal Left Anterior Descendin% stenosis treated with a AB TREK 2.25X12 RX BALLOON, MDT R KHOA 2.75X22 MARITA, and MDT NC EUPHORA RX 3.83Y43PO BALLOON. 0% residual stenosis, TIFFANI: 3 flow. Conclusions 1. 65-year-old male past medical history significant for nonobstructive coronary artery disease who for worsening of shortness of breath chest pain despite of optimization of medicine underwent stress test few months ago which was negative since he continues to do worse it is the reason we brought the patient for coronary angiogram. He was noted to have mid highly calcified tortuous lesion which was noted to be 70 to 80%. FFR was performed which was significant at 0.72. It is the reason patient was treated with balloon angioplasty followed by drug-eluting stent. Jailed diagonal was also treated with balloon angioplasty excellent angiographic result was achieved and patient was transferred back to the floor. Upon reaching the floor patient started having chest pain twelve-lead EKG showed ST elevation in anterolateral leads I was performing the second case which was on the table it was taken off of the table and patient was brought back to the Archives Specialist. He was noted to have severe spasm of the proximal and distal segment beyond and above the stent. Despite of giving IC nitro were not able to reduce the spasm. It was high suspicion that there might be dissection and most likely it was dissection due to FFR wire as the vessel is calcified and tortuous. Both dissections were treated with balloon angioplasty followed by 2 overlapping stents 1 below and one above the mid previously placed LAD stent. LAD stent which was previously placed without patent without stent thrombosis. Patient was on Aggrastat and loaded with Plavix during first intervention. Noncompliant balloon was used to postdilated all the stents. Excellent angiographic result with TIFFANI-[address] elevation resolved and patient felt much better.. 2. There is severe coronary artery disease with one vessel disease. 3. Proximal Left Anterior Descending was treated with a Drug Eluting Stent, and Balloon. 4. Distal Left Anterior Descending was treated with a Balloon, Drug Eluting Stent, and Balloon. Recommendations * Continue current medical management and risk factor modification. Interventional RX Recommendation: PCI w/o planned CABG Diagnostic RX Recommendation: PCI w/o planned CABG Clinical Evaluation EBL: 5mL-10mL Procedural Details Pre-Procedure Time Out. Identified patient by full name and date of as verbalized by the patient/guarantor. Does the consent match the physician's order: N/A Emergent. Accurate & Complete Informed Consent: N/A Emergent. Inpatient/Outpatient History & Physical on Chart: N/A Emergent. If H&P is completed, is and addenduem needed: N/A Emergent; If yes, is the addendum complete: N/A Emergent. Visualize and Verify Site with Patient/Guarantor: N/A. Relevant Radiology Images available: N/A Emergent. Pre-op teaching completed and patient verbalized understanding. The risks, benefits, and alternatives of sedation and/or procedure were discussed by physician. The patient agrees to continue. Procedure started. Correct patient, site and procedure confirmed by cath team. PERRLA. 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 Lungs clear x 5 lobes. IV Site on Arrival: 18 gauge in the left anticubital. IV Site on Arrival: 20 gauge in the left anticubital. Oxygen started at 2liters/min via nasal canula. bilateral groins was prepped with chloroprep then draped in the usual sterile fashion. Physician notified. Baseline sample Acquired. HR: 72 BPM. Physician arrived. Physician scrubbed in. Immediate Pre-Procedure Time Out. Correct Patient: Yes; Correct Procedure: Yes; Correct Site: Yes; Correct Patient Position: Yes; Correct Supplies: Yes; Dried Flammable Prep: yes; Blood Products Available: N/A;. Lidocaine 1% infiltrated to the right groin. Arterial access obtained with micropuncture set. AP pads applied. Baseline sample Acquired. HR: 70 BPM. 6 czech XB 3.5 guide catheter was inserted over the wire. Runthrough guidewire was advanced through the guide catheter to lesion in the dist LAD. anethsia called for back up and no answer. anesethia notified. Inflation number : 1 A AB TREK 2.25X12 RX BALLOON was prepped and advanced across the Dist LAD , then inflated to 14 APRIL for 0:13 seconds. Balloon out. Inflation Number : 2 A MDT R KHOA 2.75X22 MARITA -Lot Number# [id number] exp date: 06-15-2022 was prepped and advanced across the Dist LAD. The stent was deployed at 12 APRIL for 0:27 seconds. Stent balloon out over wire. Inflation number : 3 A MDT NC EUPHORA RX [id number] BALLOON was prepped and advanced across the Dist LAD , then inflated to 12 APRIL for 0:17 seconds. Inflation number: 4 The MDT NC EUPHORA RX [id number] BALLOON was reinflated across the Dist LAD, to 14 APRIL for 0:17 seconds. Inflation number: 5 The MDT NC EUPHORA RX [id number] BALLOON was reinflated across the Dist LAD, to 14 APRIL for 0:15 seconds. Balloon out. Results checked. using the 2.75mmx 22mm balloon inserted for measurement. Balloon out. Inflation Number : 1 A MDT R KHOA 3.0X22 MARITA -Lot Number# [id number] exp date: 07-31-2022 was prepped and advanced across the Prox LAD. The stent was deployed at 14 APRIL for 0:25 seconds. Stent balloon out over wire. Inflation number : 2 A MDT NC EUPHORA RX [id number] BALLOON was prepped and advanced across the Prox LAD , then inflated to 12 APRIL for 0:12 seconds. Inflation number: 3 The MDT NC EUPHORA RX [id number] BALLOON was reinflated across the Prox LAD, to 12 APRIL for 0:16 seconds. Balloon and wire out. Results checked. Guide catheter out. ACT drawn. Results 189 seconds. Therapeutic limits - pre-heparin administration 90-150 seconds and monitoring heparin during a vascular procedure >250 seconds. Sheath(s) sutured into position with 2-0 silk and sterile 4x4's and Op-site applied over the site. No oozing or signs and symptoms of hematoma noted. Arterial sheath flushed and connected to tranducer and pressure bag with heparinized saline. Post Procedure: Pulses reassessed and unchanged. PERRLA. 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 No VTE prophylaxis required. Medication's Wasted: Lidocaine 1% = 10 mL. Medication's Wasted: Nitro = 49.3 mg. Total IV fluids: 75 mL. Contrast type used: Omnipaque 300 mgI/mL, 500 mL bottle. Contrast Material : Omnipaque 243 ml. Post-op diagnosis: pt brought back due to acute vessel closure, secondary to edge disection. Medication's Wasted: Heparin = 2000 units. Complications: none. Estimated blood loss: 5mL-10mL. Procedure completed. A Suture was successful obtaining hemostatsis at the Right Femoral artery insertion site. Patient transferred by bed to 1st floor. Access Site Site: Right Femoral artery Sheath Size: 6 Fr Hemostasis Method: Suture Hemostasis Success: Successful Procedure Medications Start: 11:10 AM Stop: 11:10 AM Medication: Zofran (ondansetron) Amount: 20 mg Route: I.V. Start: 11:11 AM Stop: 11:11 AM Medication: Versed Amount: 1 mg Route: I.V. Start: 11:11 AM Stop: 11:11 AM Medication: Fentanyl Amount: 50 mcg Route: I.V. Start: 11:13 AM Stop: 11:13 AM Medication: Fentanyl Amount: 50 mcg Route: I.V. Start: 11:16 AM Stop: 11:16 AM Medication: Versed Amount: 1 mg Route: I.V. Start: 11:19 AM Stop: : AM Medication: Heparin Amount: 4000 units Route: I.V. Start: 11:20 AM Stop: 11:20 AM Medication: Nitrogylcerin Amount: 400 mcg Route: I.C. Start: 11:30 AM Stop: 11:30 AM Medication: Nitrogylcerin Amount: 400 mcg Route: I.C. Start: 11:51 AM Stop: 11:51 AM Medication: Heparin Amount: 3000 units Route: I.V. I, the attending physician, have reviewed and verified all procedure medications. Yes, all medications given per verbal order History/Risk Factors Hypertension: Yes Dyslipidemia: Yes Myocardial Infarction ([place]): Yes Tobacco Use: Current/Recent(w/in 1 year) Prior Interventions PCI: Yes Report Signatures Finalized by Jayda English MD on 01/17/2021 09:28 AM
--- NOTE | 2021-01-14 11:06 | PC.NURSE ---
patient called nurses station with reports of severe chest pain upon entering room patient is clutching chest and reports 10/10 chest pain ekg performed st elevation noted stemi alert called Dr henry and cath lab tech to bedside with confirmation of st elevation patient given morphine 2mg an 18 cj IV obtained in right arm zoll pads placed as precaution patient never lost consciousness patient take via bed to cath lab tech for intervention
[2021-01-14] MEDS: aspirin 81 mg EC Tablet PO (13:37)
--- NOTE | 2021-01-14 14:40 | PC.NURSE ---
aggrastate stopped at this time 80.2mls given
[2021-01-14 15:35] LABS: Partial Thromboplastin Time > 250.0 SECONDS (23.9-36.7)
[2021-01-14 17:32] LABS: Partial Thromboplastin Time 56.3 SECONDS (23.9-36.7)
[2021-01-14] MEDS: carbidopa-levodopa 25-250mg Tablet 1 EACH PO (17:46)
[2021-01-14] MEDS: omega-3 fatty acids 1,000 mg Capsule 1000 MG PO (17:47)
--- NOTE | 2021-01-14 22:41 | PC.NURSE ---
Instruction given regarding sheath pull. Patient verablized complete understanding. Initiated sheath removal at 2014 per protocol. Hemostasis achieved immediately. Maintained pressure for 20min. No s/s of bleeding or hematoma observed. VS remained WNL. Patient denies pain to site. Applied folded 4x4 and bio-occlusive dressing to site. Removed TR band ~2109. No bleeding or hematoma to right radial site. Covered site with 2x2 and bio-occlusive. Patient denies pain to this site as well. Provided instructions regarding site care and restrictions. Patient verbalized complete understanding to all instructions.
[2021-01-15 02:57] VITALS: BP 124/75; PULSE 70; RESP 15; TEMP 36.6; O2SAT 95
--- NOTE | 2021-01-15 03:14 | PC.NURSE ---
Patient up to bathroom. Dressing to right groin and right wrist both remain c,d,i. No s/s of bleeding or hematoma formation observed. Patient denies pain to both sites. Reinforced site care instructions. Patient verbalized complete understanding. No distress observed.
[2021-01-15 05:35] LABS: Basophils # 0.1 10^3/uL (0.0-0.1); Eosinophils # 0.1 10^3/uL (0.0-0.8); Eosinophils % 1.6 %; Hematocrit 40.5 % (42.0-52.0); Hemoglobin 13.4 g/dL (11.7-16.6); Lymphocytes # 1.3 10^3/uL (0.8-4.8); Lymphocytes % 15.3 %; Mean Corpuscular HGB Conc 33.1 g/dL (30.0-36.0); Mean Corpuscular Hemoglobin 31.5 pg (28.0-34.0); Mean Corpuscular Volume 95.1 fL (80-94); Mean Platelet Volume 10.4 fL (7.4-10.4); Monocytes % 11.3 %; Neutrophils # 6.17 10^3/uL (1.8-7.7); Neutrophils % 70.7 %; Nucleated Red Blood Cells % 0 %; Platelet Count 217 10^3/cmm (130-400); Red Blood Count 4.26 10^6/uL (4.1-5.3); Red Cell Distribution Width 12.7 % (12.1-15.1); White Blood Count 8.7 10^3/uL (4.0-10.0)
[2021-01-15 05:47] LABS: Anion Gap 12.9 (5-19); Blood Urea Nitrogen 9 mg/dL (8-23); Calcium 8.4 mg/dL (8.5-10.5); Carbon Dioxide 26 mmol/L (22-29); Chloride 104 mmol/L (98-107); Glucose 119 mg/dL (65-115); Osmolality Calculated 288 mOsm/kg (285-295); Potassium 3.9 mmol/L (3.5-5.1); Sodium 139 mmol/L (136-145)
[2021-01-15 06:27] VITALS: PULSE 79
[2021-01-15 07:48] VITALS: BP 126/69; PULSE 83; RESP 18; TEMP 36.8; O2SAT 96
[2021-01-15] MEDS: aspirin 81 mg EC Tablet PO (08:30)
[2021-01-15] MEDS: clopidogrel 75 mg Tablet PO (08:30)
[2021-01-15] MEDS: lisinopril 2.5 mg Tablet PO (08:30)
[2021-01-15] MEDS: sertraline 100 mg Tablet PO (08:30)
[2021-01-15] MEDS: atorvastatin 40 mg Tablet 80 MG PO (08:30)
[2021-01-15] MEDS: prazosin 1 mg Capsule 2 MG PO (08:31)
[2021-01-15] MEDS: atenolol 50 mg Tablet 25 MG PO (08:31)
[2021-01-15] MEDS: carbidopa-levodopa 25-250mg Tablet 1 EACH PO (08:31)
[2021-01-15] MEDS: omega-3 fatty acids 1,000 mg Capsule 1000 MG PO (08:39)
[2021-01-15 11:02] VITALS: BP 104/67; PULSE 85; RESP 19; TEMP 37; O2SAT 97
--- NOTE | 2021-01-15 12:16 | USCV_ITS ---
Pierre Mccoy Age: 65 Gender: M : 1955 Exam Date: 01/15/2021 13:32 Ordering Phys: Jayda English MD ([email or web address]) Technologist: Rossi Sahu Exam Location: [facility] [place] Indication: STEMI BP: 104 / 67 HR: 66 Rhythm: Sinus Technical Quality: Adequate MEASUREMENTS (Male / Female) Normal Values 2D ECHO LV Diastolic Diameter PLAX 4.7 cm 4.2 - 5.9 / 3.9 - 5.3 cm LV Systolic Diameter PLAX 3.1 cm LV Chamber Size 4.4 cm IVS Diastolic Thickness 1.1 cm 0.6 - 1.0 / 0.6 - 0.9 cm IVS Systolic Thickness 2.3 cm LVPW Diastolic Thickness 1.7 cm 0.6 - 1.0 / 0.6 - 0.9 cm LVPW Systolic Thickness 1.9 cm RV Chamber Size 3.5 cm LVOT Diameter 2.0 cm LV Ejection Fraction 2D Teich 62.9 % LV Ejection Fraction MOD 2C 69.7 % LV Ejection Fraction 2C AL 69.9 % LA Diameter 3.7 cm LA Width 3.0 cm LA Height 4.9 cm RA Width 3.2 cm RA Height 4.9 cm Aorta at Sinotubular Diameter 3.2 cm M-MODE LV Diastolic Diameter MM 4.7 cm 4.2 - 5.9 / 3.9 - 5.3 cm LV Systolic Diameter MM 2.7 cm LV Ejection Fraction MM Teich 74.3 % IVS Diastolic Thickness MM 1.5 cm 0.6 - 1.0 / 0.6 - 0.9 cm IVS Systolic Thickness MM 1.7 cm LVPW Diastolic Thickness MM 1.1 cm 0.6 - 1.0 / 0.6 - 0.9 cm LVPW Systolic Thickness MM 1.7 cm Aortic Annulus Diameter 4.1 cm LA Ao Ratio MM 0.9 MV E Point Septal Separation 0.4 cm DOPPLER AV Peak Velocity 135.0 cm/s LVOT Peak Velocity 96.0 cm/s AV Area Cont Eq vti 2.6 cm squared AV Area Cont Eq pk 2.3 cm squared MV Area PHT 4.1 cm squared Mitral E to A Ratio 1.2 MV E' Velocity 51.5 cm/s Mitral E to MV E' Ratio 9.2 Mitral E to LV E' Lateral Ratio 10.8 Mitral E to LV E' Septal Ratio 8.0 TR Peak Velocity 211.3 cm/s TR Peak Gradient 17.9 mmHg TR Mean Velocity 157.2 cm/s TR Mean Gradient 11.2 mmHg TR Velocity Time Integral 65.2 cm TV Peak E Velocity 67.0 cm/s Right Atrial Pressure 3.0 mmHg Pulmonary Artery Systolic Pressu 20.9 mmHg PV Peak Velocity 69.0 cm/s RV Acceleration Time 0.2 s RV Ejection Time 0.3 s RV AcT/ET 0.4 FINDINGS Left Ventricle Normal left ventricular cavity size. Normal left ventricular systolic function. No regional wall motion abnormalities. Left ventricular ejection fraction is estimated at 60 %. Grade I/IV diastolic dysfunction (abnormal relaxation filling pattern), normal to mildly elevated filling pressures. Right Ventricle The right ventricle is normal in size and function. Right Atrium The right atrium is normal in size. Left Atrium The left atrium is normal in size. Mitral Valve Mildly thickened mitral valve. No mitral valve stenosis. Mild mitral valve regurgitation. Aortic Valve Moderate aortic valve calcification. No aortic valve stenosis. Trace aortic valve regurgitation. Tricuspid Valve Mild tricuspid valve regurgitation. Pulmonic Valve Structurally normal pulmonic valve without significant stenosis. There is no pulmonic regurgitation. Pericardium Normal pericardium without effusion. Aorta Normal ascending aorta dimension. CONCLUSIONS 1-Normal left ventricular cavity size. Normal left ventricular systolic function. No regional wall motion abnormalities. Left ventricular ejection fraction is estimated at 60 %. Grade I/IV diastolic dysfunction (abnormal relaxation filling pattern), normal to mildly elevated filling pressures. 2-Mildly thickened mitral valve. No mitral valve stenosis. Mild mitral valve regurgitation. 3-Moderate aortic valve calcification. No aortic valve stenosis. Trace aortic valve regurgitation. 4-There is no pericardial effusion. 5-Pulmonary artery systolic pressure is within normal limits. 6-Right atrial pressure is around 5 mm of mercury. 7-No significant change since the prior echocardiogram study of 03/17/2017. Jayda English MD (Electronically Signed) Final Date: 15 January 2021 19:20 S
--- NOTE | 2021-01-15 13:03 | USCV_ITS ---
Pierre Mccoy Age: 65 Gender: M : 1955 Exam Date: 01/15/2021 13:16 Ordering Phys: Jayda English MD ([email or web address]) Technologist: Rossi Sahu Exam Location: [facility] [place] Indication: POST CATH RT GROIN FOR PSEUDO ANEURYSM Findings No Pseudo Aneurysm seen Patent right common femoral artery and vein in the right groin. Normal Doppler waveforms in these vessels. Patent dorsalis pedis and posterior tibial artery on the right side with normal Doppler waveforms Conclusions Patent right common femoral artery and vein at the right groin with no evidence pseudoaneurysm/AV fistula. Patent dorsalis pedis and posterior tibial arteries Dr Da Blake MD FAC (Electronically Signed) Final Date: 18 January 2021 09:35 S
--- NOTE | 2021-01-15 14:14 | PM.DCS ---
Discharge Providers Date of Discharge: January 15, 2021 Attending Provider at Discharge: Jayda English MD Primary Care Provider: Sally Conn MD Diagnoses at Discharge Discharge Diagnosis (1) ASHD (arteriosclerotic heart disease): Status: Acute (2) HTN (hypertension): Status: Acute Qualifiers: Hypertension type: essential hypertension Qualified Code(s): I10 - Essential (primary) hypertension (3) Hyperlipidemia: Status: Acute Qualifiers: Hyperlipidemia type: unspecified Qualified Code(s): E78.5 - Hyperlipidemia, unspecified Reason for Visit Reason for Visit: Angina I20.9 Hospital Course Hospital Course 65-year-old male past medical history significant for history of coronary artery disease hypertension hyperlipidemia parkinsonism for worsening of shortness of breath chest pressure and extreme fatigue suggestive of unstable angina underwent left heart cath he was noted to have 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 I decided to proceed with FFR which turned out to be significantly positive in the range of 0.77. We proceeded with single drug-eluting stent in the mid LAD. Excellent angiographic result with TIFFANI-3 flow was noted. Patient was transferred to the CSU in stable condition. Nearly after 1 hour I was called by the CSU nurse as patient started having excruciating pain despite of given Plavix and Aggrastat. Twelve-lead EKG was immediately performed which was suggestive of ST elevation in the anterior wall. Patient was immediately taken back to the Evp Chief Exploration Officer right groin approach was adopted. Angiogram revealed dissection proximal and distal to the mid LAD stent while stent was patent without any thrombosis. It was thought that perhaps this dissection was secondary to FFR wire during navigation and there is highly torturous and calcified artery. These dissection were immediately sealed with 2 drug-eluting stent which were overlapped with the previously placed mid LAD stent. All the stents were then postdilated at high inflation with noncompliant balloon. Excellent angiographic result was achieved. Overnight patient denied any event. His chest pain was immediately resolved post procedure. Right groin had moderate hematoma. Vascular ultrasound ruled out pseudoaneurysm. Patient is walking around without any difficulty. He is being discharged home with instruction to watch for right groin hematoma if it become painful or noticed more swelling he can always call us back and come to the ER if needed. Patient has been advised to continue Plavix for at least couple of years. Patient has been advised to continue rest of the medication. Physical Exam Narrative: EXAM NARRATIVE: GENERAL: Patient is alert, awake and oriented x3. NECK: No jugular vein distension. HEENT: No cyanosis. No icterus. No pallor. HEART: Regular S1 and S2. No murmur, rub or gallop. LUNGS: Clear to auscultate bilaterally. ABDOMEN: Soft, nontender and nondistended. Positive bowel sounds. No guarding, rebound or tenderness. CENTRAL NERVOUS SYSTEM: Grossly nonfocal. EXTREMITIES: Lower extremities without edema bilaterally. Right groin hematoma with mild bruising Discharge Data Data Completed and Pending: Pending at discharge Category Date Time Status ELEVATOR CONDUCTOR request for service Routin e Exams 01/14/21 06:00 Taken ELEVATOR CONDUCTOR request for service Routin e Exams 01/14/21 11:06 Taken CV echo complete* [id number] Routine Ultrasound 01/15/21 12:16 Taken US arterial duple x groin RT [CV art erial dup groin RT Ultrasound 01/15/21 13:03 Taken [id number]] Urgent Labs from last 24 hours 01/15/21 01/15/21 01/14/21 03:57 03:57 17:13 WBC 8.7 RBC 4.26 Hgb 13.4 Hct 40.5 L MCV 95.1 H MCH 31.5 MCHC 33.1 RDW 12.7 Plt Count 217 MPV 10.4 Neut % (Auto) 70.7 Lymph % (Auto) 15.3 [place] % (Auto) 11.3 Eos % (Auto) 1.6 Baso % (Auto) 1.0 Neut # (Auto) 6.17 Lymph # (Auto) 1.3 [place] # (Auto) 1.0 H Eos # (Auto) 0.1 Baso # (Auto) 0.1 Nucleated RBC % (a uto) 0 Nucleated RBCs # 0.0 APTT 56.3 H D Sodium 139 Potassium 3.9 Chloride 104 Carbon Dioxide 26 Anion Gap 12.9 BUN 9 Creatinine 0.9 GFR Calculation 85.0 L Glucose 119 H Calculated Osmolal ity 288 Calcium 8.4 L 01/14/21 14:54 WBC RBC Hgb Hct MCV MCH MCHC RDW Plt Count MPV Neut % (Auto) Lymph % (Auto) [place] % (Auto) Eos % (Auto) Baso % (Auto) Neut # (Auto) Lymph # (Auto) [place] # (Auto) Eos # (Auto) Baso # (Auto) Nucleated RBC % (a uto) Nucleated RBCs # APTT > 250.0 H* Sodium Potassium Chloride Carbon Dioxide Anion Gap BUN Creatinine GFR Calculation Glucose Calculated Osmolal ity Calcium Vitals: Last Vital Signs Temp 98.6 F 01/15/21 11:02 Pulse 85 01/15/21 11:02 Resp 19 H 01/15/21 11:02 BP 104/67 01/15/21 11:02 Pulse Ox 97 01/15/21 11:02 Discharge Plan Discharge Patient Disposition: Home Condition: Stable Prescriptions: New Plavix 75 mg tablet 75 mg PO DAILY Qty: 90 RF: 4 Continued isosorbide mononitrate 30 mg tablet extended release 24 hr 30 mg PO BID Qty: 180 RF: 3 prazosin 2 mg capsule 2 mg PO DAILY RF: 0 rosuvastatin 20 mg tablet 20 mg PO DAILY RF: 0 lisinopril 2.5 mg tablet 2.5 mg PO DAILY RF: 0 aspirin [Adult Low Dose Aspirin] 81 mg tablet,delayed release (DR/EC) 81 mg PO DAILY RF: 0 Hold Instructions: Resume on 12/04/20. omega-3 fatty acids [Fish Oil Concentrate] 1,000 mg capsule 1,000 mg PO BID RF: 0 carbidopa-levodopa 25-250 mg tablet 1 tab PO BID RF: 0 sertraline [Zoloft] 100 mg tablet 100 mg PO DAILY RF: 0 nitroglycerin [Nitrostat] 0.4 mg tablet, sublingual 0.4 mg SUBLINGUAL Q5M PRN (Reason: chest pain) 30 Days Qty: 25 RF: 6 atenolol 25 mg tablet 25 mg PO DAILY Qty: 90 RF: 3 hydrocodone-acetaminophen 5-325 mg tablet 1 tab PO Q6H PRN (Reason: pain) Qty: 28 RF: 0 Discharge Orders: Discharge Order (Routine); Ordered 01/15/21 Ordered By: Jayda English Referrals: Jayda English MD [Physician] - (Heart care services will call you to set up this appointment. If you do not hear from them by Monday please call [phone].) Kerrie Robles FNP [Nurse Practitioner] - 7-10 days (Heart care services will call you to set up this appointment. If you do not hear from them by Monday please call [phone].) Discharge Diet: Cardiac Discharge Activity: Increase activity as tolerated Patient Instructions: Clopidogrel (By mouth), Myocardial Infarction (DC), Left Heart Catheterization (DC), Coronary Angioplasty (DC), Chest Pain Stoplight, Opioid Safety, Post Angiogram Home Care Instructions Activity Restrictions/Additional Instructions: Follow-up with Kerrie Robles in 7 to 10 days. Follow-up with Dr. English in 6 to 8 weeks. Discharge Attestations Time Spent in Discharge Care*: less than 30 min Specific Discharge Activities: educating patient Quality Metrics Clinical Quality Measures During this hospital stay, did patient experience: AMI Clinical Trial Participant: No Contraindication to aspirin (AMI): Aspirin given Contraindication to statin: Statin prescribed Contraindication to PCI: PCI performed Coding Level of Care Code Acute g FW DC note Diagnoses ASHD (arteriosclerotic heart disease) I25.10 HTN (hypertension) I10 Hypertension type: essential hypertension Hyperlipidemia E78.5 Hyperlipidemia type: unspecified
[2021-01-15 15:11] VITALS: BP 109/62; PULSE 68; RESP 20; TEMP 36.6; O2SAT 97
[2021-01-15 17:00] VITALS: BP 109/62; PULSE 68; RESP 20; TEMP 36.6; O2SAT 97
== END 2021-01-15 17:00 | disposition home or self-care (01) ==
LOC: CCL 05:51 → CSU 14:00
PROVIDERS: PCP Family Medicine; Visit Provider Internal Medicine Cardiovascular Disease
DX: I25.110 Atherosclerotic heart disease of native coronary artery with unstable angina pectoris (principal); E78.5 Hyperlipidemia, unspecified; I10 Essential (primary) hypertension; Z79.82 Long term (current) use of aspirin; I25.2 Old myocardial infarction; Z95.5 Presence of coronary angioplasty implant and graft; F17.210 Nicotine dependence, cigarettes, uncomplicated
CPT/HCPCS: 36415; 80048; 85025; 85347; 85730; 93306; 93454; 93571; 93926; C1725; C1769; C1874; C1887; C1894; C9600; J0153; J0461; J1644; J2250; J2270; J2405; J3010; J3246; J3490; J7030; Q0163; Q9967

== ENCOUNTER → 2021-01-22 09:45 | Outpatient (BNVA) | payer OTHER, SELFPAY | PROVIDERS: PCP Family Medicine; Visit Provider Nurse Practitioner Family | DX: I25.119 Atherosclerotic heart disease of native coronary artery with unspecified angina pectoris (principal); I10 Essential (primary) hypertension; Z95.5 Presence of coronary angioplasty implant and graft | CPT/HCPCS: 80048 ==

== ENCOUNTER → 2021-01-28 08:41 | Outpatient (BNVA) | payer OTHER, SELFPAY | PROVIDERS: PCP Family Medicine; Visit Provider Surgery | DX: K62.5 Hemorrhage of anus and rectum (principal); Z20.822 Contact with and (suspected) exposure to COVID-19 | CPT/HCPCS: 87635 ==

== ENCOUNTER 2021-02-03 06:28 | Day surgery (SDC) | payer OTHER, SELFPAY ==
[2021-02-01 09:21] VITALS: BMI 33.1
--- NOTE | 2021-02-03 | FL_ITS ---
WS: [id number] Barium enema, single contrast, 02/03/2021 Clinical Data: BLOOD IN STOOL Comparison: None. Fluoroscopy time: 2.5 minutes. Findings: The barium was introduced in a retrograde fashion to fill the entire colon. The cecum was well outlin ed and the ileocecal valve was identified. There were no masses, polyps, erosions or obstruction. Th ere were sigmoid diverticula seen. Postevacuation film was normal. FL/FL barium enema [id number] Impression: Sigmoid diverticula.
[2021-02-03 06:42] VITALS: BP 120/78; PULSE 81; RESP 18; TEMP 36.1; O2SAT 95
--- NOTE | 2021-02-03 06:53 | ANES.PREANE2 ---
Pre-Anesthetic Assessment Pre-Anesthetic Assessment: Height/Weight: Height 1.73 m Weight 98.883 kg Temp Pulse Resp BP Pulse Ox 97.0 F L 81 18 120/78 95 02/03/21 06:42 02/03/21 06:42 02/03/21 06:42 02/03/21 06:42 02/03/21 06:42 Preop Diagnosis: Bleeding per rectum Proposed Procedure: Operation Date: 02/03/21 07:30 Proposed Procedures p Colonoscopy 65182 K62.5(Not Applicable) - Chester Whitman MD Familial anesthetic complications: none Was Beta Maria Luisa taken within 24 hours: Yes Was Clonidine taken within 24 hours: N/A Last intake: Intake Last Liquid Date 02/02/21 Last Liquid Time 22:30 Last Solid Date 02/01/21 Last Solid Time 19:00 Social: Social History: Tobacco and No alcohol Packs per day: 1-1.5 Pack years: 50 Exam: Pre-Anes Outpt Exam: alert, oriented x 3, clear to auscultation bilaterally and regular rate & rhythm Airway: Submandibular: WNL Cervical ROM: WNL MP: 2 Dentition: Full Additional comments: some missing Pulmonary: Pulmonary: HOPPER (better since stents ) and Sleep apnea CV/HEM: CV/HEM: CAD and HTN Comments: better since stents x 3 (4 total)- most recent january 14 2021 : : None reported Hepatic: Hepatic: None reported GI: GI: None reported Metabolic: Metabolic: Hyperlipidemia Musc/skel: Musc/skel: Lower Back Pain and OA/DJD Neuropsych: Neuropsych: Anxiety and Depression Anesthetic Plan: ASA status: 3 Anesthesia: MAC Risk of > 500 ml blood loss (7ml/kg in children): No PFSH Anesthesia PFSH: Medical History (Updated 01/22/21 @ 17:50 by SARAN Reynoso) ASHD (arteriosclerotic heart disease) Coronary artery disease History of [place] (myocardial infarction) HTN (hypertension) Hyperlipidemia Mass of shoulder region Presence of stent in LAD coronary artery Tremor Surgical History S/P coronary artery stent placement Social History Smoking and tobacco status: current every day smoker Data Anesthesia Cardiac Studies: No Data to Display
--- NOTE | 2021-02-03 06:55 | W.PM.OPSFHP ---
Same Day Surgery H&P Indication for Procedure/HPI DATE OF PROCEDURE: February 03, 2021 CHIEF COMPLAINT/INDICATIONFOR SURGICAL PROCEDURE: Blood in stool PREOP DIAGNOSIS: Bleeding per rectum PLANNED PROCEDRUE: Operation Date: 02/03/21 07:30 Proposed Procedures p Colonoscopy 70557 K62.5(Not Applicable) - Chester Whitman MD Patient comes today status post excision of right shoulder lipoma and pathology did showA. Soft tissue, right shoulder lipoma , excision: ?Lipoma. Dictated by: Gloria Charles MD Tissues A. Lipoma - Right shoulder lipoma Additional complaint based on the fact that the patient has been having bleeding per rectum for the past year or so and had a previous colonoscopy was of insignificance before.Patient reports that he has been having worsening blood in stool over the past month. Patient is referred to me by the CA for potential consideration of repeat colonoscopy. Previous clinical evaluation did not demonstrate any previous concerns of any blood in stool. Interim history 02/03/2021 Patient comes today for colonoscopy, yet the patient had a stent placed back in January 13 and has been on Plavix and that was stopped without being communicated to the cardiology service, for patient safety I will abort the colonoscopy and will schedule a barium enema as an outpatient and will resume Plavix. ROS All systems have been reviewed negative except as per the above or per problem list Medications/Allergies* Home Medications Medication Instructions Recorded Confirmed Type aspirin 81 mg tablet,delayed 81 mg PO DAILY 11/19/19 02/03/21 History release lisinopril 2.5 mg tablet 2.5 mg PO DAILY 11/19/19 02/03/21 History rosuvastatin 20 mg tablet 20 mg PO DAILY 11/19/19 02/03/21 History omega-3 fatty acids 1,000 mg 1,000 mg PO BID cap 03/09/20 02/03/21 History capsule sertraline 100 mg tablet 100 mg PO DAILY 03/09/20 02/03/21 History carbidopa 25 mg-levodopa 250 mg 1 tab PO BID tab 10/21/20 02/03/21 History tablet prazosin 2 mg capsule 2 mg PO DAILY cap 10/21/20 02/03/21 History Allergies/Adverse Reactions Allergy/AdvReac Type Severity Reaction Status Date / Time No Known Allergies Allergy Verified 02/03/21 06:56 Pertinent History/Comorbid Conditions* Medical History (Updated 01/22/21 @ 17:50 by SARAN Reynoso) ASHD (arteriosclerotic heart disease) Coronary artery disease History of [place] (myocardial infarction) HTN (hypertension) Hyperlipidemia Mass of shoulder region Presence of stent in LAD coronary artery Tremor Surgical History (Updated 11/24/19 @ 13:26 by Jayda English MD) S/P coronary artery stent placement Social History Smoking and tobacco status: current every day smoker Pertinent Exam Findings alert, oriented x 3, clear to auscultation bilaterally, regular rate & rhythm and procedure specific exam findings (Abdominal exam nontender nondistended soft) Recommendations Surgery/Procedure today (Will have to abort the colonoscopy today patient being recently stented for coronary artery disease) Other Plans: Patient had a stent placed back in January 13 and we will plan to abort the colonoscopy and proceed with a barium enema as an outpatient and certainly resume the Plavix right away. We will notify cardiology service with those changes. Coding Level of Care Code Acute Laydown Machine Operator for Brodie Chang
[2021-02-03] MEDS: sodium chloride 0.9% 1,000 ML 30 ML IV (06:59)
--- NOTE | 2021-02-03 07:48 | FL_ITS ---
WS: [id number] Left foot, 3 views weightbearing, 02/03/2021 Clinical Data: blood in stool Comparison: None. Findings: No fractures or dislocations are seen. No bone destruction or erosion is noted. There is osteoarthrit ic change of the left first MTP joint. There is a small bunion at the head of the left first metatars al.There is a plantar spur.
--- NOTE | 2021-02-03 07:54 | PC.NURSE ---
Procedure was cancelled and sent to radiology for barium enama, per Dr. Whitman' instruction.
== END 2021-02-03 07:55 | disposition home or self-care (01) ==
LOC: GILAB 06:30
PROVIDERS: PCP Family Medicine; Visit Provider Surgery
DX: K92.1 Melena (principal); I25.10 Atherosclerotic heart disease of native coronary artery without angina pectoris; I25.2 Old myocardial infarction; I10 Essential (primary) hypertension; E78.5 Hyperlipidemia, unspecified; Z95.5 Presence of coronary angioplasty implant and graft; F17.210 Nicotine dependence, cigarettes, uncomplicated; K57.30 Diverticulosis of large intestine without perforation or abscess without bleeding
CPT/HCPCS: 74270; 96360; J7030

== ENCOUNTER → 2022-01-06 15:19 | Outpatient (BNVA) | payer OTHER, SELFPAY | PROVIDERS: PCP Family Medicine; Visit Provider Internal Medicine | DX: I25.10 Atherosclerotic heart disease of native coronary artery without angina pectoris (principal); I10 Essential (primary) hypertension; F17.200 Nicotine dependence, unspecified, uncomplicated | CPT/HCPCS: 99214 ==

== ENCOUNTER 2022-04-14 06:00 | Outpatient (RCR) | payer OTHER, SELFPAY | END 2022-05-13 23:59 | disposition home or self-care (01) | LOC: APT 06:00 | PROVIDERS: PCP Family Medicine; Visit Provider Family Medicine | DX: M54.59 Other low back pain (principal) | CPT/HCPCS: 97110; 97163 ==

== ENCOUNTER 2022-05-14 06:00 | Outpatient (RCR) | payer OTHER, SELFPAY | END 2022-06-13 23:59 | disposition home or self-care (01) | LOC: APT 06:00 | PROVIDERS: PCP Family Medicine; Visit Provider Family Medicine | DX: M54.50 Low back pain, unspecified (principal) | CPT/HCPCS: 97110 ==

== ENCOUNTER → 2022-10-06 12:54 | Outpatient (BNVA) | payer OTHER, SELFPAY | PROVIDERS: PCP Family Medicine; Visit Provider Internal Medicine | DX: I25.119 Atherosclerotic heart disease of native coronary artery with unspecified angina pectoris (principal); I10 Essential (primary) hypertension; F17.200 Nicotine dependence, unspecified, uncomplicated; I25.2 Old myocardial infarction; Z79.82 Long term (current) use of aspirin | CPT/HCPCS: 99213 ==

== ENCOUNTER → 2022-10-19 09:50 | Outpatient (BNVA) | payer OTHER, SELFPAY | PROVIDERS: PCP Family Medicine; Referring Provider Family Medicine; Visit Provider Orthopaedic Surgery | DX: R20.0 Anesthesia of skin (principal); R20.2 Paresthesia of skin | CPT/HCPCS: 73030; 99203 ==

== ENCOUNTER → 2022-12-07 09:37 | Outpatient (BNVA) | payer OTHER, SELFPAY | PROVIDERS: PCP Family Medicine; Visit Provider Specialist | DX: G56.02 Carpal tunnel syndrome, left upper limb (principal); G56.22 Lesion of ulnar nerve, left upper limb | CPT/HCPCS: 95908; 95910 ==

== ENCOUNTER → 2023-07-17 10:10 | Outpatient (BNVA) | payer OTHER, SELFPAY | PROVIDERS: PCP Family Medicine; Visit Provider Nurse Practitioner Family | DX: I10 Essential (primary) hypertension (principal); I25.119 Atherosclerotic heart disease of native coronary artery with unspecified angina pectoris; F17.200 Nicotine dependence, unspecified, uncomplicated | CPT/HCPCS: 99214 ==

== ENCOUNTER 2023-07-27 08:48 | Outpatient (CLI) | payer OTHER, SELFPAY ==
--- NOTE | 2023-07-27 | ECG_ITS ---
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 Interpretive Statements NAME OF STUDY: LEXISCAN SESTAMIBI STRESS TEST INDICATION: Chest Pain; HX of LAD stent PROCEDURE: At the baseline, the blood pressure was 121 over 67 mm Hg with a heart rate of 55 bpm. The electrocardiogram showed sinus bradycardia, normal axis with nonspecific ST depression. ??? The Lexiscan was infused over a period of 20 seconds. A total of 0.4 milligrams of Lexiscan was infused. The stress phase was continued for a total of 5 minutes. Heart rate at the end of the stress phase was 70 bpm with a blood pressure of 117/58 mmHg. The EKG at the peak infusion revealed sinus rhythm with no significant ST-T wave changes. ??? Sestamibi was injected 20 seconds after the Lexiscan infusion. ??? Blood pressure at the end of the recovery phase was 110/60 mmHg with a heart rate of 70 beats per minute. ??? CONCLUSION: 1. No significant EKG changes with the LexiScan infusion. 2. No LexiScan induced chest pain or cardiac arrhythmia. 3. Normal blood pressure and heart rate response. 4. Sestamibi/sestamibi perfusion scan pending; see separate report. Results to Kerrie Robles Electronically Signed On 07-31-2023 11:58:26 HRIS SPECIALIST by Nathalia Way M.D. [id number]
[2023-07-27 09:01] VITALS: BMI 14.6
--- NOTE | 2023-07-27 09:04 | NMCV_ITS ---
NM bay perf SPECT r/s* [id number] Pierre Mccoy Age: 67 Gender: M : 1955 Exam Date: 07/27/2023 09:54 Ordering Phys: Kerrie Robles Technologist: GREGORY Pérez Exam Location: [facility] Indications: ATHEROSCLEROTIC HEART DISEASE STRESS TEST [facility] IMAGE PROTOCOL Rest/Stress 1 Lexiscan Day Radiopharmaceutical Dose (mCi) Administration Site Administered by Rest: Tc-99m 10.9 IV GREGORY Pérez Sestamibi Stress:Tc-99m 32.6 IV Livia Li, COMPRESSOR SERVICE TECHNICIAN Sestamibi Rest: 27-Jul-2023 60 Discovery 630 Stress: 27-Jul-2023 30 Discovery 630 0.4mg Lexiscan. Images obtained in supine and prone position. SPECT RESULTS Technical Quality: Excellent Raw Data Analysis: Normal Image Corrections: No attenuation or motion correction applied Summed Stress Score: 2 Summed Rest Score: 1 Summed Difference Score: 2 PERFUSION FINDINGS SPECT images demonstrate homogeneous tracer distribution throughout the myocardium. FUNCTIONAL RESULTS (calculated via Gated SPECT) Stress Image LV EF (%): 60 Stress EDV (mL):113 TID: 1.01 Stress ESV (mL):45 FUNCTIONAL FINDINGS: The left ventricle is normal in size. Transient Ischemia Dilatation of 1. The left ventricular ejection fraction is normal with a value of 60%. There is normal left ventricular systolic function. There is normal left ventricular wall thickening. IMPRESSIONS 1. Myocardial perfusion imaging is normal. 2. Overall left ventricular systolic function is normal without regional wall motion abnormalities, LVEF=60%. 3. EKG portion of the study will be reported separately. 4. Scan indicates low risk for cardiac events. Nathalia Way MD (Electronically Signed) Final Date: 31 July 2023 11:55 S
[2023-07-27] MEDS: regadenoson 0.4 Mg/5 ml Syringe IVP (11:03)
[2023-07-27 11:16] VITALS: BP 117/58; PULSE 82
== END 2023-07-27 08:49 | disposition home or self-care (01) ==
PROVIDERS: PCP Family Medicine; Visit Provider Nurse Practitioner Family
DX: I25.10 Atherosclerotic heart disease of native coronary artery without angina pectoris (principal)
CPT/HCPCS: 36415; 78452; 93017; 96374; A9500; J2785

== ENCOUNTER → 2024-01-02 07:53 | Outpatient (BNVA) | payer OTHER, SELFPAY | PROVIDERS: PCP Family Medicine; Referring Provider Family Medicine; Visit Provider Specialist | DX: G20.A1 Parkinson's disease without dyskinesia, without mention of fluctuations (principal) | CPT/HCPCS: 99204 ==

== ENCOUNTER → 2024-04-02 12:48 | Outpatient (BNVA) | payer OTHER, SELFPAY | PROVIDERS: PCP Family Medicine; Visit Provider Internal Medicine | DX: I25.119 Atherosclerotic heart disease of native coronary artery with unspecified angina pectoris (principal); I10 Essential (primary) hypertension; F17.200 Nicotine dependence, unspecified, uncomplicated | CPT/HCPCS: 99214 ==

== ENCOUNTER 2024-05-09 07:01 | Outpatient (CLI) | payer OTHER, SELFPAY ==
[2024-05-09 07:07] VITALS: BMI 32.3
--- NOTE | 2024-05-09 07:10 | ECG_ITS ---
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 Interpretive Statements LEXISCAN SESTAMIBI STRESS TEST Procedure: At the baseline, the blood pressure was 112/66 mmHg with a heart rate of 55 bpm. The electrocardiogram showed normal sinus rhythm, normal axis with normal ST and T's. The Lexiscan was infused over a period of 20 seconds. A total of 0.4 mg of Lexiscan was infused. The stress phase was continued for a total of 5 minutes. Heart rate was at the end of stress phase was 71 bpm and a blood pressure of 114/59 mmHg. The EKG at the peak infusion revealed normal sinus rhythm with no significant ST-T wave changes. Sestamibi was injected 20 seconds after the Lexiscan infusion. Blood pressure at the end of recovery phase was 107/59mmHg with a heart rate of 72 bpm. Conclusion: 1. Normal EKG response to Lexiscan infusion 2. No Lexiscan induced chest pain or cardiac arrhythmia. 3. Normal blood pressure and heart rate response. 4. Sestamibi/sestamibi perfusion scan pending; see separate report. Electronically Signed On 05-11-2024 19:02:35 CDT by Cuong Marks M.D. [id number]
--- NOTE | 2024-05-09 07:10 | NMCV_ITS ---
NM bay perf SPECT r/s* [id number] KikemoPierre Age: 68 Gender: M : 1955 Exam Date: 05/09/2024 08:04 Ordering Phys: Cuong Marks M.D ([email or web address]) Technologist: GREGORY Rand Exam Location: [facility] Indications: CP, SOB STRESS TEST Please see separate stress test report in [facility] for full findings IMAGE PROTOCOL Rest/Stress 1 Lexiscan Day Radiopharmaceutical Dose (mCi) Administration Site Administered by Rest: Tc-99m 10.8 IV GREGORY Arauz Sestamibi Stress:Tc-99m 32.6 IV GREGORY Cook Sestamibi Rest: 09-May-2024 60 Discovery 630 Stress: 09-May-2024 30 Discovery 630 0.4mg Lexiscan. Images obtained in supine and prone position. SPECT RESULTS Technical Quality: Good Raw Data Analysis: Adequate Image Corrections: No attenuation or motion correction applied Summed Stress Score: 7 Summed Rest Score: 5 Summed Difference Score: 2 PERFUSION FINDINGS There is a large area of partially reversible perfusion defect seen in the inferior and inferoseptal barney. This is consistent with large area of prior infarct with small to medium sized area of latoya-infarct seen in the RCA territory. FUNCTIONAL RESULTS (calculated via Gated SPECT) Stress Image LV EF (%): 75 Stress EDV (mL):115 TID: 1.03 Stress ESV (mL):29 FUNCTIONAL FINDINGS: There is normal left ventricular systolic function. IMPRESSIONS 1. Abnormal myocardial perfusion imaging with large area of prior infarct with small to medium sized area of latoya-infarct ischemia in RCA territory 2. LV systolic function is normal Cuong Marks MD (Electronically Signed) Final Date: 09 May 2024 11:53 S
[2024-05-09] MEDS: regadenoson 0.4 Mg/5 ml Syringe IVP (08:55)
[2024-05-09 09:09] VITALS: BP 107/74; PULSE 68
== END 2024-05-09 07:02 | disposition home or self-care (01) ==
PROVIDERS: PCP Family Medicine; Visit Provider Internal Medicine
DX: R07.9 Chest pain, unspecified (principal); R06.02 Shortness of breath; R94.39 Abnormal result of other cardiovascular function study
CPT/HCPCS: 36415; 78452; 93017; 96374; A9500; J2785

== ENCOUNTER 2024-05-23 07:09 | Outpatient (CLI) | payer OTHER, SELFPAY ==
[2024-05-23] VITALS (16 sets, daily range): BP systolic 97–130; BP diastolic 61–82; PULSE 54–78; RESP 12–21; TEMP 36.4; O2SAT 95–98; BMI 32.3
--- NOTE | 2024-05-23 07:30 | XACV_ITS ---
Exam Room: 2 Ht: 173 cm Wt: 97 kg BSA: 2.18 m2 Gender: Male : 1955 Any Known Allergies: No known allergies Exam Priority: Routine Procedure(s): Procedure Description: Diagnostic procedure Procedure Description: Left Heart Catheterization Procedure Description: Left ventriculography Procedure Description: Coronary Angiography Diagnostic Cath Status: Elective Diagnostic Findings * INDICATION: Dyspnea on exertion/abnormal stress test. * No disease noted in the Left Main, Left Anterior Descending, Right, or Circumflex coronary arteries. Patent prior LAD stents. In distal segment of mid LAD stent, there is mild ISR. Patent prior RCA stent. * Coronary angiography shows right dominance. Conclusions 1. No disease noted in the Left Main, Left Anterior Descending, Right, or Circumflex coronary arteries. Patent prior LAD stents. In distal segment of mid LAD stent, there is mild ISR. Patent prior RCA stent. 2. Normal left ventricular systolic function. Ejection fraction of 65%. Recommendations * Aggressive medical therapy for coronary artery disease. * Outpatient cardiology follow up in 2 weeks. Interventional RX Recommendation: medical therapy and/or counseling Diagnostic RX Recommendation: medical therapy and/or counseling Anticoagulation: Heparin Ventriculography Ejection Fraction: 65.0 % Pressures Phase:Rest AO : 83 / 58 ( 70 ) @ 9:19:00 AM 111 / 62 ( 82 ) @ 9:26:00 AM 108 / 59 ( 77 ) @ 9:26:00 AM LV : 114 / 5 / 20 @ 9:25:00 AM 114 / 25 @ 9:26:00 AM 115 / 10 / 24 @ 9:26:00 AM Valves Phase:DefaultPhase AV : 2.0 @ 8:31:26 AM AV Mean Gradient: 0.0 @ 8:31:26 AM Clinical Evaluation EBL: 5mL-10mL Procedural Details Procedure Consent Obtained. Current Diagnosis : Chest Pain. Pre-Procedure Time Out. Identified patient by full name and date of as verbalized by the patient/guarantor. Does the consent match the physician's order: Yes. Accurate & Complete Informed Consent: Yes. Inpatient/Outpatient History & Physical on Chart: Yes. If H&P is completed, is and addenduem needed: No; If yes, is the addendum complete: N/A. Visualize and Verify Site with Patient/Guarantor: N/A. Relevant Radiology Images available: Yes. Pre-op teaching completed and patient verbalized understanding. The risks, benefits, and alternatives of sedation and/or procedure were discussed by physician. The patient agrees to continue. Procedure started. [facility] Clinical Fraility Score: 3: Managing Well. Tin Can Feeder Indications: Worsening Angina. Chest Pain Symptom Assessment: Atypical Angina. Correct patient, site and procedure confirmed by cath team. Current diagnosis: Chest Pain. PERRLA. 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 Lungs clear x 5 lobes. IV Site on Arrival: 20 gauge in the left forearm. IV Fluids: 0.9% NaCl at KVO. 0 mL infused prior to manager laboratory. Pre Procedural Pulses: right dorsalis pedis was 3+. Pre Procedural Pulses: left dorsalis pedis was Doppled. Pre Procedural Pulses: bilateral posterior tibial was Doppled. Pre Procedural Pulses: bilateral radial was 3+. Oxygen started at 2liters/min via nasal canula. right groin was prepped with chloroprep then draped in the usual sterile fashion. right radial was prepped with chloroprep then draped in the usual sterile fashion. Physician arrived. Baseline sample Acquired. HR: 63 BPM. Physician scrubbed in. Immediate Pre-Procedure Time Out. Correct Patient: Yes; Correct Procedure: Yes; Correct Site: Yes; Correct Patient Position: Yes; Correct Supplies: Yes; Dried Flammable Prep: Yes; Blood Products Available: N/A;. Lidocaine 1% infiltrated to the right radial. Arterial access obtained. A 5 ecuadorean TIG catheter in over wire. Multiple views taken of left coronary artery. Catheter redirected to the RCA. Multiple views taken of right coronary artery. Catheter removed over the exchange wire. A 5 ecuadorean Angled Pig catheter in over wire. EDP Sample taken: LV 114/5,20; HR: 69 BPM; SpO2: 96%. LV gram performed in VANESSA @ 10 mL/second for a total of 30 mL. EDP Sample taken: LV 114/10,25; HR: 68 BPM; SpO2: 96%. Pullback taken: LV 115/10,24; AO 111/62(82); Mean: 0mmHg, Peak to Peak: 2mmHg, SEP: 7sec/min; HR: 81 BPM; SpO2: 96%. Catheter removed over the exchange wire. Physician scrubbed out. A TR Band was successful obtaining hemostatsis at the Right Radial artery insertion site. Post Procedure: Pulses reassessed and unchanged. PERRLA. 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 No VTE prophylaxis required. Medication's Wasted: Lidocaine 1% = 18 mL. Medication's Wasted: Heparin = 1000 units. Medication's Wasted: Other = Fentanyl 50 mcg. Total IV fluids: 25 mL. Complications: None. Estimated blood loss: 5mL-10mL. Responsiveness - Normal response to verbal stimuli; alert and oriented, PERRLA. Airway - Unaffected, no intervention required; spontaneous ventilation. Circulation: W/N/L, pulses unchanged. Nausea/Vomiting: No. Procedure completed. Patient transferred by wheelchair to CPRU. Vital chart was stopped. Access Site Site: Right Radial artery Sheath Size: 6 Fr Hemostasis Method: TR Band Hemostasis Success: Successful Procedure Medications Start: 8:12 AM Stop: 8:12 AM Medication: Versed Amount: 1 mg Route: I.V. Start: 8:12 AM Stop: 8:12 AM Medication: Fentanyl Amount: 50 mcg Route: I.V. Start: 8:17 AM Stop: 8:17 AM Medication: Nitrogylcerin Amount: 200 mcg Route: I.A. Start: 8:18 AM Stop: 8:18 AM Medication: Heparin Amount: 5000 units Route: I.V. I, the attending physician, have reviewed and verified all procedure medications. Yes, all medications given per verbal order History/Risk Factors Hypertension: Yes Dyslipidemia: Yes Peripheral Arterial Disease (PAD): No Myocardial Infarction (TX): No Obesity: No Renal Disease: No Tobacco Use: Current/Recent(w/in 1 year) Prior Interventions PCI: Yes CABG: No Valve Surgery: No Date of PCI: 01/14/2021 Report Signatures Finalized by Cuong Marks MD on 05/25/2024 07:11 PM
[2024-05-23 07:39] LABS: Basophils # 0.1 10^3/uL (0.0-0.1); Basophils % 1.5 %; Eosinophils # 0.1 10^3/uL (0.0-0.8); Eosinophils % 1.6 %; Hematocrit 41.8 % (37-53); Lymphocytes # 1.6 10^3/uL (0.8-4.8); Lymphocytes % 26.2 %; Mean Corpuscular HGB Conc 32.5 g/dL (30-55); Mean Corpuscular Hemoglobin 31.1 pg (27-33); Mean Corpuscular Volume 95.7 fl (82-101); Mean Platelet Volume 9.5 fL (7.4-10.4); Monocytes # 0.6 10^3/uL (0.2-0.9); Monocytes % 9.9 %; Neutrophils # 3.72 10^3/uL (1.8-7.7); Neutrophils % 60.6 %; Nucleated Red Blood Cells % 0 %; Platelet Count 172 10^3/cmm (157-399); Red Blood Count 4.37 10^6/uL (3.85-5.65); Red Cell Distribution Width 12.3 % (12.1-15.1); White Blood Count 6.14 10^3/uL (3.29-11.43)
[2024-05-23] MEDS: aspirin 325 mg Tablet PO (07:46)
[2024-05-23] MEDS: diphenhydrAMINE 50 mg Capsule PO (07:46)
[2024-05-23 07:59] LABS: Anion Gap 12.1 (5-19); Blood Urea Nitrogen 16 mg/dL (8-23); Calcium 8.3 mg/dL (8.5-10.5); Carbon Dioxide 24 mmol/L (22-29); Chloride 109 mmol/L (98-107); Creatinine Clr Calc Pharmacy 100.9909; Glomerular Filtration Rate 96.4 mL/min (90-130); Glucose 120 mg/dL (65-115); Osmolality Calculated 294 mOsm/kg (285-295); Potassium 4.1 mmol/L (3.5-5.1); Sodium 141 mmol/L (136-145)
--- NOTE | 2024-05-23 08:12 | P.HP_ITS ---
Same Day Surgery H&P Indication for Procedure/HPI DATE OF PROCEDURE: May 23, 2024 CHIEF COMPLAINT/INDICATIONFOR SURGICAL PROCEDURE: Dyspnea on exertion/abnormal stress test PREOP DIAGNOSIS: Dyspnea on exertion/abnormal stress test PLANNED PROCEDURE: Operation Date: 05/23/24 08:30 Proposed Procedures p Cardiac Catheterization(Left) - Cuong Marks M.D Possible percutaneous coronary intervention 68-year-old man with past medical history of coronary artery disease who has been having significant dyspnea on exertion. Stress test was performed that was abnormal. Plan for coronary angiogram with possible PCI. Medications/Allergies* Home Medications Medication Instructions Recorded Confirmed Type aspirin 81 mg tablet,delayed 81 mg PO DAILY 11/19/19 05/23/24 History release (Adult Low Dose Aspirin) rosuvastatin 20 mg tablet 20 mg PO DAILY 11/19/19 05/22/24 History sertraline 100 mg tablet (Zoloft) 100 mg PO DAILY 03/09/20 05/23/24 History prazosin 2 mg capsule 2 mg PO DAILY 10/21/20 05/22/24 History carbidopa 25 mg-levodopa 100 mg 1 tab PO BID 05/22/24 05/23/24 History tablet folic acid 1 mg tablet 1 mg PO DAILY 05/22/24 05/23/24 History Allergies/Adverse Reactions Allergy/AdvReac Type Severity Reaction Status Date / Time No Known Allergies Allergy Verified 05/09/24 07:14 Current Medications: Generic Name Dose Route Start Last Admin Trade Name Freq PRN Reason Stop Dose Admin Sodium Chloride 1,000 mls @ 50 mls/hr 05/23/24 07:30 05/23/24 07:19 Sodium Chloride 0.9% IV 05/24/24 03:29 Not Given .Q20H ONE Pertinent History/Comorbid Conditions* Medical History (Updated 12/10/22 @ 13:28 by Edwige Reyes MD) Presence of stent in LAD coronary artery Coronary artery disease Mass of shoulder region History of [place] (myocardial infarction) Tremor Hyperlipidemia HTN (hypertension) ASHD (arteriosclerotic heart disease) Surgical History (Updated 11/24/19 @ 13:26 by Jayda English MD) S/P coronary artery stent placement Social History Smoking and tobacco/nicotine status: current every day tobacco/nicotine user Pertinent Exam Findings alert, oriented x 3, clear to auscultation bilaterally and regular rate & rhythm Conscious Sedation Assessment PATIENT ASSESSED PRIOR TO SEDATION, WITH NO CHANGE NOTED: Yes AIRWAY EVAL/ANESTHESIA PLAN: normal airway, ASA III, Local Anesthesia, Risks, benefits & alternatives of sedation and/or procedure discussed and Patient agrees to continue as planned ADDITIONAL INFORMATION: Moderate sedation Recommendations Surgery/Procedure today (Left heart cath with possible percutaneous coronary intervention) Coding Level of Care Code Acute Code for [facility] Fwd
--- NOTE | 2024-05-23 11:08 | PC.NURSE ---
TR band removal Started releasing air from TR band at 0945. 1-3ml air released every 5-15 minutes until band deflated. Band deflated and removed at 1050. Clean bandaid applied over site. Site is asymptomatic. No signs of bleeding or hematoma noted. Radial pulse palpable. No complaints of pain or discomfort by patient.
== END 2024-05-23 12:11 | disposition home or self-care (01) ==
PROVIDERS: PCP Family Medicine; Visit Provider Internal Medicine
DX: R94.39 Abnormal result of other cardiovascular function study (principal); Z79.82 Long term (current) use of aspirin; Z95.5 Presence of coronary angioplasty implant and graft; I25.2 Old myocardial infarction; E78.5 Hyperlipidemia, unspecified; I10 Essential (primary) hypertension; F17.200 Nicotine dependence, unspecified, uncomplicated
CPT/HCPCS: 36415; 80048; 85025; 93458; 96374; 99152; 99153; C1769; C1887; C1894; J1644; J2250; J3010; J3490; J7030; Q0163; Q9967

== ENCOUNTER → 2024-06-05 13:43 | Outpatient (BNVA) | payer OTHER, SELFPAY | PROVIDERS: PCP Family Medicine; Visit Provider Nurse Practitioner Family | DX: I25.119 Atherosclerotic heart disease of native coronary artery with unspecified angina pectoris (principal); I10 Essential (primary) hypertension; T14.8XXA Other injury of unspecified body region, initial encounter; W54.0XXA Bitten by dog, initial encounter; F17.200 Nicotine dependence, unspecified, uncomplicated | CPT/HCPCS: 36415; 80048; 99214 ==

== ENCOUNTER → 2024-12-31 11:21 | Outpatient (BNVA) | payer OTHER, SELFPAY | PROVIDERS: PCP Family Medicine; Visit Provider Internal Medicine | DX: I25.119 Atherosclerotic heart disease of native coronary artery with unspecified angina pectoris (principal); I10 Essential (primary) hypertension; Z79.82 Long term (current) use of aspirin; Z95.5 Presence of coronary angioplasty implant and graft; F17.200 Nicotine dependence, unspecified, uncomplicated; I25.2 Old myocardial infarction | CPT/HCPCS: 99213 ==

== ENCOUNTER → 2025-01-02 08:33 | Outpatient (BNVA) | payer OTHER, SELFPAY | PROVIDERS: PCP Family Medicine; Visit Provider Specialist | DX: G25.0 Essential tremor (principal); G31.84 Mild cognitive impairment of uncertain or unknown etiology | CPT/HCPCS: 96116; 99214 ==